=== PATIENT | female | born 1960 | race Caucasian/White ===

== ENCOUNTER → 2017-10-07 | Outpatient (CLI) | payer OTHER ==
--- NOTE | 2017-10-11 09:55 | Diagnostic Imaging Report ---
#[id number] - MGSCRBIL #BILATERAL DIGITAL SCREENING MAMMOGRAM WITH CAD: 10/07/2017 CLINICAL: Routine screening. Comparison is made to exam dated: 09/10/2015 mammogram - [facility]. Current study contains 4 films. There are scattered fibroglandular elements in both breasts. Current study was also evaluated with a Computer Aided Detection (CAD) system. There are benign calcifications in both breasts. No significant masses, calcifications or other findings are seen in either breast. There has been no significant interval change. IMPRESSION: BENIGN There is no mammographic evidence of malignancy. A 1 year screening mammogram is recommended. The patient will be notified by letter of the results. Gustavo Robles Jr., D.O. cw/:10/08/2017 14:49:57 Counter Control Operator: Leslee LUGO)(Pool), [facility] letter sent: Compared to Prior B9 Mammogram BI-RADS: 2 Benign
== END ==
LOC: MAMMO 10:39
PROVIDERS: ATTEND Internal Medicine
DX: Z12.31 Encounter for screening mammogram for malignant neoplasm of breast (principal)
CPT/HCPCS: 77067

== ENCOUNTER 2019-06-02 08:21 | Outpatient (RCR) | payer OTHER | END 2019-06-03 | LOC: OT 08:21 | PROVIDERS: ATTEND Specialist | DX: S46.001A Unspecified injury of muscle(s) and tendon(s) of the rotator cuff of right shoulder, initial encounter (principal); M25.511 Pain in right shoulder; R53.1 Weakness; Z85.118 Personal history of other malignant neoplasm of bronchus and lung ==

== ENCOUNTER 2019-06-27 09:00 | Outpatient (RCR) | payer OTHER | END 2019-07-04 | LOC: OT 09:00 | PROVIDERS: ATTEND Specialist | DX: M75.81 Other shoulder lesions, right shoulder (principal) ==

== ENCOUNTER → 2019-08-07 | Outpatient (CLI) | payer OTHER ==
--- NOTE | 2019-08-07 11:11 | Diagnostic Imaging Report ---
MRI of the right shoulder without contrast. History: Shoulder pain. Decreased range of motion. Rotator cuff tear. Pain not responding to conservative management Comparison: None Technique: Coronal PD FS, sagital PD FS, and axial PD and PD FS. Findings: Rotator cuff: Rotator cuff tendinosis with midsubstance degeneration and mild articular sided fraying/partial tearing involving the anterior fibers of the supraspinatus and infraspinatus tendons at the humeral insertion site. Additionally, there is subscapularis tendinosis. The teres minor tendon is intact. Osseous acromion complex: Type II acromion with mild lateral downsloping. Mild degenerative arthrosis at the acromioclavicular joint with undersurface spurring and narrowing of the supraspinatus tendon outlet. Glenohumeral joint: Degeneration and fraying of the labrum. Articular cartilage fraying and deep fissuring most pronounced in the central glenoid with subchondral cystic change and mild bone marrow edema. The humeral head is well-seated in the glenoid fossa. Biceps tendon: The biceps tendon is intact. Other findings: Negative for muscle denervation or osseous fracture. Impression: Rotator cuff tendinosis with midsubstance degeneration and mild articular sided fraying/partial tearing involving the anterior fibers of the supraspinatus and infraspinatus tendons at the humeral insertion site. Degenerative arthrosis in the glenohumeral and acromioclavicular joints as described above. Signed by: Dr. Robles Martines M.D. on 08/07/2019 11:08 AM
--- NOTE | 2019-08-07 11:52 | Diagnostic Imaging Report ---
MRI SPINE CERVICAL WO HISTORY: Cervical radiculopathy COMPARISON: None. TECHNIQUE: Sagittal T1, sagittal T2, sagittal inversion recovery, axial T2, axial T2 GRE, and axial T1 weighted MR images of the cervical spine were obtained without intravenous contrast. DISCUSSION: Alignment: Normal lordosis. No scoliosis. Vertebrae: No definite evidence for fractures, infection, or neoplasm. Cervicomedullary junction: Mild cerebellar atrophy is partially imaged. Spinal cord: The ventral cord is mildly flattened by posterior disc osteophyte complex on the right at C4-C5 and centrally at C5-C6. The cord is otherwise normal signal and morphology from the foramen magnum through T3-T4. Soft tissues: Partially imaged T1 hypointense, T2 hyperintense mass at the right lung apex measures up to 4.3 cm in transverse dimension and encases the proximal right subclavian artery; this is in close proximity to the proximal right brachial plexus. Approximately 1.6 cm T2 hyperintense left thyroid nodule is present. Moderate to severe multilevel disc degeneration is present C2-C3: Mild left foraminal stenosis due to uncovertebral and facet arthrosis. No significant canal or right foraminal stenosis. C3-C4: Moderate canal stenosis due to posterior disc osteophyte complex, eccentric to the right, and ligamentum flavum thickening. Severe bilateral foraminal stenoses, right greater than left, due to uncovertebral and facet arthrosis. C4-C5: Moderate to severe canal stenosis due to posterior disc osteophyte complex, eccentric to the right, and ligamentum flavum thickening. Severe bilateral foraminal stenoses, right greater than left, due to uncovertebral and facet arthrosis. C5-C6: Moderate to severe canal stenosis due to posterior disc osteophyte complex and ligamentum flavum thickening. Severe bilateral foraminal stenoses due to uncovertebral and facet arthrosis. C6-C7: Mild to moderate canal stenosis due to posterior disc osteophyte complex, eccentric to the left, and ligamentum flavum thickening. Mild right and moderate left foraminal stenoses due to uncovertebral and facet arthrosis. C7-T1: Mild canal stenosis due to posterior disc osteophyte complex and ligamentum flavum thickening. Mild to moderate right and moderate left foraminal stenoses due to uncovertebral and facet arthrosis. IMPRESSION: 1. Partially imaged, at least 4.3 cm right lung apex mass is concerning for lung malignancy. Further evaluation with chest CT is recommended (with contrast if clinically feasible). 2. Moderate to severe multilevel disc degeneration. 3. Multilevel degenerative canal stenoses - moderate to severe at C4-C5 and C5-C6. 4. Multilevel degenerative foraminal stenoses - severe bilaterally from C3-C4 to C5-C6, right greater than left. 5. Approximately 1.6 cm T2 hyperintense left thyroid nodule can be further evaluated with thyroid ultrasound. Signed by: Dr. Garland Rebolledo M.D. on 08/07/2019 11:49 AM
== END ==
LOC: MRI 09:24
PROVIDERS: ATTEND Specialist
DX: M54.12 Radiculopathy, cervical region (principal)
CPT/HCPCS: 72141

== ENCOUNTER 2019-10-12 16:59 | Emergency (ER) | payer SELFPAY ==
[~2019-10-12] VITALS: Ht 167.6 cm; Wt 68.0 kg
--- NOTE | 2019-10-12 17:27 | Emergency Department Note ---
History of Present Illnes History of Present Illness Chief Complaint: General Medicine Complaints History of Present Illness This is a 59 year old female arrived to the ED with complaints of right shoulder pain, patient with a history of significant rotator cuff issue in the past. Patient requesting pain medication the ED. Patient states she is unable to follow up with her pain management doctor. . 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 Arrival Mode: Car Prosthodontist/Educator Required: No Onset (how long ago): month(s) Onset quality: gradual Duration (how long): week(s) Timing of current episode: intermittent Progression: waxing and waning Chronicity: chronic Context: Denies trauma/injury Relieving factors: none Exacerbating factors: none Past Medical/Family History Physician Review I have reviewed the patient's past medical and family history. Any updates have been documented here. Past Medical History Recent Fever: No Clinical Suspicion of Infectio: No New/Unexplained Change in Ment: No Past Medical History: Hypertension Other Medical History: LUNG CA Past Surgical History: Tubal Ligation Social History Physically hurt or threatened: No Review of Systems Review of Systems Constitutional: Reports no symptoms EENTM: Reports no symptoms Cardiovascular: Reports no symptoms Respiratory: Reports no symptoms Gastrointestinal: Reports no symptoms Genitourinary: Reports no symptoms Musculoskeletal: Reports joint pain, Reports muscle pain, Reports muscle stiffness Integumentary: Reports no symptoms Neurological: Reports no symptoms Psychological: Reports no symptoms Endocrine: Reports no symptoms Hematological/Lymphatic: Reports no symptoms Physical Exam Related Data Allergies: Coded Allergies: No Known Allergies (Unverified , 10/12/19) Triage Vital Signs Vital Signs Date Time Temp Pulse Resp B/P (MAP) Pulse Ox O2 Delivery O2 Flow Rate FiO2 10/12/19 17:14 98.1 106 18 159/109 99 Room Air Vital signs reviewed: Yes Physical Exam CONSTITUTIONAL Constitutional: Present well-developed, Present well-nourished HENT HENT: Present normocephalic, Present atraumatic, Present oropharynx clear/moist, Present nose normal HENT L/R: Present left ext ear normal, Present right ext ear normal EYES Eyes: Reports PERRL, Reports conjunctivae normal NECK Neck: Present ROM normal PULMONARY Pulmonary: Present effort normal, Present breath sounds normal CARDIOVASCULAR Cardiovascular: Present regular rhythm, Present normal rate GASTROINTESTINAL Abdominal: Present soft, Present nontender, Present bowel sounds normal GENITOURINARY Genitourinary: Present exam deferred SKIN Skin: Present warm, Present dry MUSCULOSKELETAL Musculoskeletal: Present other (right arm in a sling, compartments are soft); Absent deformity NEUROLOGICAL Neurological: Present alert, Present oriented x 3, Present no gross motor or sensory deficits PSYCHOLOGICAL Psychological: Present mood/affect normal, Present judgement normal Assessment & Plan Medical Decision Making MDM 59-year-old female arrived to the ED with complaints of right shoulder pain, history of rotator cuff injuries in the past. Patient in no obvious deformity noted, compartments are soft, full ROM noted at shoulder joint, pt able to abduct and adduct right upper extremity. Pt offered nonnarcotic forms a pain management, which included Motrin, ketorolac, Solu-Medrol, Tylenol, Lidoderm patch which she refused. Patient states she'll follow up with her pain management doctor. Assessment & Plan Final Impression: (1) Chronic pain (2) Shoulder pain with history of repair of rotator cuff Depart Disposition: HOME, SELF-CARE Last Vital Signs Date Time Temp Pulse Resp B/P (MAP) Pulse Ox O2 Delivery O2 Flow Rate FiO2 10/12/19 17:14 98.1 106 18 159/109 99 Room Air RANDY SHERWOOD DO Oct 12, 2019 17:27
== END 2019-10-12 17:26 | disposition home or self-care (01) ==
LOC: ER 17:14
DX: M25.511 Pain in right shoulder (principal); I10 Essential (primary) hypertension; Z85.118 Personal history of other malignant neoplasm of bronchus and lung
CPT/HCPCS: 99282

== ENCOUNTER 2019-10-22 22:24 | Emergency (ER) | payer OTHER ==
[~2019-10-22] VITALS: Ht 167.6 cm; Wt 68.0 kg
[2019-10-22] MEDS ORDERED: KETOROLAC TROMETHAMINE 60 MG/2 ML VIAL IM ONE ×2 (22:45)
--- NOTE | 2019-10-22 22:49 | Emergency Department Note ---
History of Present Illnes History of Present Illness Chief Complaint: Extremity Trauma/Pain History of Present Illness This is a 59 year old female PRESENTS TO THE ER VIA EMS FROM HOME C/O NECK AND RT SHOULDER PAIN "FOR MONTHS"; PT HAS STAGE 4 LUNG CA; PT HAD HYDROCODONE FILLED ON 10/20/19 AND RAN OUT; PUPILS PINPOINT; LAST HYDROCODONE X2HRS [employer]; RT RT RADIAL PULSE PALPABLE AND STRONG; CAP REFILL < 3 SEC; PT RECEIVED A PRESCRIPTION FOR NORCO ON 10/20/19, 2 DAYS AGO, SHE STATES THE PAIN MEDICATION IS NOT HELPING. 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 Mode: [facility] Onset (how long ago): month(s) (several) Location: right shoulder Quality: pain Radiation: Reports non-radiation Severity: severe Onset quality: unable to specify Duration (how long): month(s) (several months) Timing of current episode: constant Chronicity: new Context: Denies recent illness, Denies recent surgery, Denies trauma/injury Relieving factors: none Exacerbating factors: movement Associated symptoms: Reports denies other symptoms Treatments prior to arrival: none Past Medical/Family History Physician Review I have reviewed the patient's past medical and family history. Any updates have been documented here. Past Medical History Recent Fever: No Clinical Suspicion of Infectio: No New/Unexplained Change in Ment: No Past Medical History: Hypertension, Cancer Other Medical History: STAGE 4 LUNG CA Past Surgical History: Tubal Ligation Social History Smoking Cessation: Former smoker Alcohol Use: None Any Illegal Drug Use: No Family History Family history of heart diseas: No Review of Systems Review of Systems Constitutional: Reports no symptoms EENTM: Reports no symptoms Cardiovascular: Reports no symptoms Respiratory: Reports no symptoms Gastrointestinal: Reports no symptoms Genitourinary: Reports no symptoms Musculoskeletal: Reports as per HPI Integumentary: Reports no symptoms Neurological: Reports no symptoms Psychological: Reports no symptoms Endocrine: Reports no symptoms Hematological/Lymphatic: Reports no symptoms Physical Exam Related Data Allergies: Coded Allergies: No Known Allergies (Unverified , 10/12/19) Triage Vital Signs Vital Signs Date Time Temp Pulse Resp B/P (MAP) Pulse Ox O2 Delivery O2 Flow Rate FiO2 10/22/19 22:37 98.2 101 24 123/96 89 Room Air Vital signs reviewed: Yes Physical Exam CONSTITUTIONAL Constitutional: Present well-developed, Present well-nourished HENT HENT: Present normocephalic, Present atraumatic, Present oropharynx clear/moist, Present nose normal HENT L/R: Present left ext ear normal, Present right ext ear normal EYES Eyes: Reports PERRL, Reports conjunctivae normal, Reports other (PUPILS PINPOINT 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 [employer]) NECK Neck: Present ROM normal PULMONARY Pulmonary: Present effort normal, Present breath sounds normal CARDIOVASCULAR Cardiovascular: Present regular rhythm, Present heart sounds normal, Present capillary refill normal, Present normal rate GASTROINTESTINAL Abdominal: Present soft, Present nontender, Present bowel sounds normal GENITOURINARY Genitourinary: Present exam deferred SKIN Skin: Present warm, Present dry MUSCULOSKELETAL Musculoskeletal: Present ROM normal, Present other (PAIN WITH ROM OF RIGHT SHOUDLER, NO OBVIOS DEFORMITY, N/V IMTACT) NEUROLOGICAL Neurological: Present alert, Present oriented x 3, Present no gross motor or sensory deficits PSYCHOLOGICAL Psychological: Present mood/affect normal, Present judgement normal Assessment & Plan Medical Decision Making MDM PT WITH CHRONIC RIGHT SHOULDER PAIN, H/O ROTATOR CUFF TEAR TORADOL 30 MG IM ORDERED Assessment & Plan Final Impression: (1) Chronic pain (2) Shoulder pain with history of repair of rotator cuff Depart Disposition: HOME, SELF-CARE Last Vital Signs Date Time Temp Pulse Resp B/P (MAP) Pulse Ox O2 Delivery O2 Flow Rate FiO2 10/22/19 22:37 98.2 101 24 123/96 89 Room Air Medications in the ED Ketorolac Tromethamine 60 mg ONCE ONCE IM ; Start 10/22/19 at 22:45; Stop 10/22/19 at 22:41; Status DC Ketorolac Tromethamine 30 mg ONCE ONCE IM ; Start 10/22/19 at 22:45; Stop 10/22/19 at 22:46; Status UNV AMI RAPP MD Oct 22, 2019 22:49
[2019-10-23 00:07] VITALS: BP 145/85
== END 2019-10-23 02:18 | disposition home or self-care (01) ==
LOC: ER 22:40
DX: M25.511 Pain in right shoulder (principal); M54.2 Cervicalgia; G89.29 Other chronic pain; C34.90 Malignant neoplasm of unspecified part of unspecified bronchus or lung; I10 Essential (primary) hypertension; Z87.891 Personal history of nicotine dependence
CPT/HCPCS: 96372; 99283; J1885

== ENCOUNTER 2019-11-09 01:39 | Inpatient (IN) | payer OTHER ==
[~2019-11-09] VITALS: Ht 167.6 cm; Wt 71.7 kg
[2019-11-09] VITALS (7 sets, daily range): BP systolic 106–151; BP diastolic 72–85
[2019-11-09] MEDS ORDERED: SODIUM CHLORIDE 0.9% 1000ML 1,000 ML IV STA (01:44)
--- NOTE | 2019-11-09 01:47 | Emergency Department Note ---
History of Present Illnes History of Present Illness History of Present Illness This is a 59 year old female poor historian reports acute on chronic R shoulder pain with abd pain and n/v. PMH of stage IV CA. Hospice has been previously discussed with patient and deferred 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, Family Member Arrival Mode: Car Onset (how long ago): day(s) (1) Radiation: Reports extremity, Reports abdomen Severity: moderate Onset quality: gradual Duration (how long): day(s) Timing of current episode: constant Progression: worsening Chronicity: recurrent Context: Reports recent illness, Reports non-compliance w/ medications Relieving factors: immobilization, rest Exacerbating factors: eating, movement Associated symptoms: Reports loss of appetite, Reports nausea/vomiting, Reports weakness Treatments prior to arrival: none Previous service: tests performed, one or more referrals, re-evaluation Past Medical/Family History Physician Review I have reviewed the patient's past medical and family history. Any updates have been documented here. Past Medical History Recent Fever: No Clinical Suspicion of Infectio: No New/Unexplained Change in Ment: No Past Medical History: Hypertension, Cancer Other Medical History: STAGE 4 LUNG CA Past Surgical History: Tubal Ligation Social History Smoking Cessation: Current some day smoker Counseling Performed: Yes Alcohol Use: None Any Illegal Drug Use: No Review of Systems Review of Systems Constitutional: Reports weakness EENTM: Reports no symptoms Cardiovascular: Reports no symptoms Respiratory: Reports no symptoms Gastrointestinal: Reports nausea, Reports vomiting Genitourinary: Reports no symptoms Musculoskeletal: Reports joint pain Integumentary: Reports no symptoms Neurological: Reports no symptoms Psychological: Reports no symptoms Endocrine: Reports no symptoms Hematological/Lymphatic: Reports no symptoms Physical Exam Related Data Allergies: Coded Allergies: No Known Allergies (Unverified , 10/12/19) Vital signs reviewed: Yes Physical Exam CONSTITUTIONAL Constitutional: Present cachectic, Present ill appearing HENT HENT: Present normocephalic, Present atraumatic, Present oropharynx clear/moist, Present nose normal HENT L/R: Present left ext ear normal, Present right ext ear normal EYES Eyes: Reports PERRL, Reports conjunctivae normal NECK Neck: Present ROM normal PULMONARY Pulmonary: Present effort normal, Present breath sounds normal CARDIOVASCULAR Cardiovascular: Present regular rhythm, Present heart sounds normal, Present capillary refill normal, Present normal rate GASTROINTESTINAL Abdominal: Present soft, Present tender GENITOURINARY Genitourinary: Present exam deferred SKIN Skin: Present warm, Present dry MUSCULOSKELETAL Musculoskeletal: Present ROM normal NEUROLOGICAL Neurological: Present alert, Present oriented x 3, Present no gross motor or sensory deficits PSYCHOLOGICAL Psychological: Present mood/affect normal, Present judgement normal Results Laboratory Lab results reviewed: Yes Imaging Imaging results reviewed: Yes Impressions [place] [address] Patient Name: DONNIE CEDENO MR #: [id number] : 1960 Age/Sex: 59/F Req #: [id number] Adm Physician: Ordered by: TERESA LOVING DO Report #: [id number] Location: ER Room/Bed: Procedure: [id number] CT/CT ABDOMEN/PELVIS W Exam Date: Exam Time: REPORT STATUS: Signed EXAM: CT Chest WITH contrast 11/09/2019 3:07 AM INDICATION: /o of Lung CA . Nausea and vomiting for 2 days. COMPARISON: None TECHNIQUE: Chest was scanned utilizing a multidetector helical scanner from the lung apex through the level of the adrenal glands with administration of IV contrast. Coronal and sagittal reformations were obtained. Routine protocol was performed. Abdomen and pelvis were scanned utilizing a multidetector helical scanner from the lung base to the pubic symphysis after administration of IV contrast. Coronal and sagittal reformations were obtained. Routine protocol was performed. Scan was performed when during portal venous phase. IV CONTRAST: 100 mL of Omnipaque 300 COMPLICATIONS: None RADIATION DOSE: Total DLP: 549.59cm Estimated effective dose: (DLP x 0.014 x size factor) mSv CTDIvol has been reviewed. It is below the limits set by the Radiation Protocol Committee (RPC). Dose modulation, iterative reconstruction, and/or weight based adjustment of the mA/kV was utilized to reduce the radiation dose to as low as reasonably achievable. FINDINGS: LUNGS AND AIRWAYS: Consolidative masslike opacity at the right apex with surgical internal surgical clips measures approximately 5.0 x 3.7 x 4.3 cm. There is a 6 mm right hilar node. The upper lobe segmental bronchi are truncated as they approach the mass. Otherwise, the airways are patent. Consolidative opacity with air bronchograms just inferior to the mass like opacity. The masslike opacity encases the right subclavian artery. Calcified granuloma in the right upper lobe. PLEURA: No pleural effusion. No pneumothorax. HEART AND MEDIASTINUM: The thyroid gland is normal. No mediastinal, hilar or axillary lymphadenopathy. The heart is normal in size. There is no pericardial effusion. The thoracic aorta and main pulmonary artery are normal caliber. There is diffuse wall thickening of the mid to distal esophagus which is fluid filled with mucosal hyperenhancement. BONES: Old nonunited rib fractures on the right. Degenerative changes of the thoracic spine. HEPATOBILIARY: No focal hepatic lesions. No biliary ductal dilation. GALLBLADDER: No radio-opaque stones or sludge. No wall thickening. SPLEEN: No splenomegaly. PANCREAS: No focal masses or ductal dilatation. ADRENALS: No adrenal nodules KIDNEYS/URETERS: Kidneys enhance symmetrically. No hydronephrosis. No cystic or solid mass lesions. No stones. GI TRACT: Stomach is markedly distended with fluid and ingested contents. There is focal soft tissue thickening of the first and second portions of the duodenum. No dilated small bowel loops. Retained oral contrast within the nondilated colon. PELVIC ORGANS/BLADDER: Unremarkable. LYMPH NODES: No lymphadenopathy. VESSELS: Unremarkable. PERITONEUM / RETROPERITONEUM: No free air or fluid. BONES: Age-indeterminate mild compression deformity of the L2 vertebral body involving less than 10% body height loss. Degenerative changes of the lumbar spine. SOFT TISSUES: Unremarkable. IMPRESSION: 1. Focal soft tissue thickening of the first and second portions of the duodenum and dilated fluid-filled stomach. Findings are suspicious for gastric outlet obstruction. Differential includes focal duodenitis, although given history of lung cancer, an obstructing metastatic lesion is most concerning. Consider GI consultation to consider the utility of endoscopy for further evaluation. 2. Circumferentially thickened mid to distal esophagus with mucosal hyperenhancement concerning for esophagitis. Esophagus is fluid-filled. 3. 5.0 cm masslike opacity at the right apex that truncates the segmental upper lobe bronchi. This could represent residual tumor posttreatment changes. Superimposed infection is not excluded. Correlation with oncologic history and outside exams to determine stability is recommended. Signed by: Aruna Joyce MD on 11/09/2019 4:22 AM Dictated By: ARUNA JOYCE MD 1 Transcribed By: NICOLLE on 11/09/19421 COPY TO: TERESA LOVING DO~ Procedures ABG Interpretation ABG Results: ABG 1 Interpretation: metabolic alkalosis Assessment & Plan Medical Decision Making MDM Diff Dx: Cancer, COVID-19 infection, SBO, constipation, sepsis, PE. CTA chest, CBC, CMP, EKG, COVID-19 test ordered Assessment & Plan Final Impression: (1) Lung cancer (2) Gastric outlet obstruction (3) Chronic pain Depart Disposition: ADMITTED Home Meds Reported Medications Gabapentin (GABAPENTIN) 300 Mg Capsule, 300 MG PO BID, #60 CAP 11/09/19 Hydrocodone Bit/Acetaminophen (NORCO 7.5-325 TABLET) 1 Each Tablet, 1 TAB PO Q6H PRN, TAB 11/09/19 TERESA LOVING DO Nov 09, 2019 01:47
[2019-11-09 01:55] LABS: BASOPHILS % 0.1 % (0.0-1.0); HEMATOCRIT 39.5 % (34.2-44.1); HEMOGLOBIN 13.1 g/dL (12.0-16.0); LYMPHOCYTES # (AUTO) 0.9 (1.0-3.2); LYMPHOCYTES % 6.3 % (18.0-39.1); MEAN CORPUSCULAR HEMOGLOBIN 31.1 pg (28-32); MEAN CORPUSCULAR HGB CONC 33.2 g/dL (31-35); MEAN CORPUSCULAR VOLUME 93.8 fL (81-99); MONOCYTES # (AUTO) 1.1 (0.2-0.8); MONOCYTES % 7.7 % (4.4-11.3); NEUTROPHILS # (AUTO) 11.8 (2.1-6.9); NEUTROPHILS % 85.4 % (38.7-80.0); PLATELET COUNT 414 x10e3/uL (140-360); RED BLOOD COUNT 4.21 x10e6/uL (3.6-5.1); RED CELL DISTRIBUTION WIDTH 12.2 % (11.7-14.4)
[2019-11-09] MEDS ORDERED: ONDANSETRON HCL INJ 2MG/ML 2ML 2 MG/ML VIAL IV STA (01:56)
[2019-11-09 02:14] LABS: ALBUMIN 3.1 g/dL (3.5-5.0); ALBUMIN/GLOBULIN RATIO 0.8 (0.8-2.0); ANION GAP 22.5 mmol/L (8-16); CALCIUM 10.6 mg/dL (8.4-10.2); CREATININE, SERUM 1.52 mg/dL (0.57-1.11); POTASSIUM 3.5 mmol/L (3.5-5.1)
[2019-11-09 02:19] LABS: CREATINE KINASE MB 0.6 ng/mL (0-5.0)
[2019-11-09] MEDS ORDERED: SODIUM CHLORIDE 0.9% 500ML 500 ML IV STA (02:47)
[2019-11-09] MEDS ORDERED: SODIUM CHLORIDE 0.9% 50ML 50 ML ONE (02:56)
[2019-11-09] MEDS ORDERED: IOPAMIDOL 370 MG/ML 200 ML INFUS..BTL INJ ONE (02:56)
--- OUTSIDE RECORDS SUMMARY | 2019-11-09 03:15 | XMS REPORT | Continuity of Care Document ---
Author Author [facility] t Organization [facility] Address 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 Name Role Phone BINTA FALCON, MD LITTLE PCP Oksana WONG Attphys Unavailable SIDNEY KINNEY Attphys Unavailable Payers Payer Name Policy Type Policy Number Effective Date Expiration Date S ource r o [id number] 2019 00:00:00 [facility] Ppo [id number] [facility] Problems Condition Name Condition Details Condition Category Status Onset Date Resolution Date Last Treatment Date Treating Clinician Comments Source Chronic pain Problem Active [facility] Shoulder pain with history of repair of rotator cuff Problem Activ e [facility] Allergies, Adverse Reactions, Alerts Allergy Name Allergy Type Status Severity Reaction(s) Onset Date Inacti ve Date Treating Clinician Comments Source No Known Allergies DA Active U 2017-10-19 00:00:00 [facility] Social History Social Habit Start Date Stop Date Quantity Comments Source Sex Assigned At 1960 00:00:00 1960 00:00:00 Female [facility] Medications This patient has no known medications. Vital Signs Vital Name Observation Time Observation Value Comments Source Weight 2019-10-22 22:37:00 150 [lb_av] [facility] BMI (Body Mass Index) 2019-10-22 22:37:00 24.2 kg/m2 [facility] Weight 2019-10-12 17:14:00 150 [lb_av] [facility] BMI (Body Mass Index) 2019-10-12 17:14:00 24.2 kg/m2 [facility] Procedures Procedure Date / Time Performed Performing Clinician Sourc e MRI joint upr extrem w/o dye 2019-08-07 00:00:00 [facility] Magnetic resonance imaging of cervical spine without c ontrast 2019-08-07 00:00:00 [facility] Plan of Care Planned Activity Planned Date Details Comments Source Instructions Chronic Pain [facility] Encounters Start Date/Time End Date/Time [facility]counter [facility] ID Source 2019-10-22 22:40:00 2019-10-23 02:18:00 Departed Emergency Room [facility] [id number] [facility] 2019-10-12 17:14:00 2019-10-12 17:26:00 Departed Emergency Room [facility] [id number] [facility] 2019-08-07 09:24:00 2019-08-07 09:24:00 Registered Clinic 3 GERI WONG [facility] [id number] [facility] 2019-06-05 08:40:00 2019-07-04 23:59:00 Discharged Recurring [facility] [id number] [facility] 2019-06-02 07:21:00 2019-06-03 22:59:00 Discharged Recurring [facility] [id number] [facility] Results Test Description Test Time Test Comments Results Result Comments Source MRI SPINE CERVICAL WO 2019-08-07 11:30:[address] [place] [address] Patient Name: DONNIE CEDENO MR #: [id number] : 1960 Age/Sex: 59/F Req #: [id number] Adm Physician: Ordered by: GERI WONG MD Report #: [id number] Location: MRI Room/Bed: Procedure: [id number] MRI/MRI SPINE CERVICAL WO Exam Date: Exam Time: REPORT STATUS: Signed MRI SPINE CERVICAL WO HISTORY: Cervical radiculopathy COMPARISON: None. TECHNIQUE: Sagittal T1, sagittal T2, sagittal inversion recovery, axial T2, axial T2 GRE, and axial T1 weighted MR images of the cervical spine were obtained without intravenous contrast. DISCUSSION: Alignment: Normal lordosis. No scoliosis. Vertebrae: No definite evidence for fractures, infection, or neoplasm. Cervicomedullary junction: Mild cerebellar atrophy is partially imaged. Spinal cord: The ventral cord is mildly flattened by posterior disc osteophyte complex on the right at C4-C5 and centrally at C5-C6. The cord is otherwise normal signal and morphology from the foramen magnum through T3-T4. Soft tissues: Partially imaged T1 hypointense, T2 hyperintense mass at the right lung apex measures up to 4.3 cm in transverse dimension and encases the proximal right subclavian artery; this is in close proximity to the proximal right brachial plexus. Approximately 1.6 cm T2 hyperintense left thyroid nodule is present. Moderate to severe multilevel disc degeneration is present C2-C3: Mild left foraminal stenosis due to uncovertebral and facet arthrosis. No significant canal or right foraminal stenosis. C3-C4: Moderate canal stenosis due to posterior disc osteophyte complex, eccentric to the right, and ligamentum flavum thickening. Severe bilateral foraminal stenoses, right greater than left, due to uncovertebral and facet arthrosis. C4-C5: Moderate to severe canal stenosis due to posterior disc osteophyte complex, eccentric to the right, and ligamentum flavum thickening. Severe bilateral foraminal stenoses, right greater than left, due to uncovertebral and facet arthrosis. C5-C6: Moderate to severe canal stenosis due to posterior disc osteophyte complex and ligamentum flavum thickening. Severe bilateral foraminal stenoses due to uncovertebral and facet arthrosis. C6-C7: Mild to moderate canal stenosis due to posterior disc osteophyte complex, eccentric to the left, and ligamentum flavum thickening. Mild right and moderate left foraminal stenoses due to uncovertebral and facet arthrosis. C7-T1: Mild canal stenosis due to posterior disc osteophyte complex and ligamentum flavum thickening. Mild to moderate right and moderate left foraminal stenoses due to uncovertebral and facet arthrosis. IMPRESSION: 1. Partially imaged, at least 4.3 cm right lung apex mass is concerning for lung malignancy. Further evaluation with chest CT is recommended (with contrast if clinically feasible). 2. Moderate to severe multilevel disc degeneration. 3. Multilevel degenerative canal stenoses - moderate to severe at C4-C5 and C5-C6. 4. Multilevel degenerative foraminal stenoses - severe bilaterally from C3-C4 to C5-C6, right greater than left. 5. Approximately 1.6 cm T2 hyperintense left thyroid nodule can be further evaluated with thyroid ultrasound. Signed by: Dr. Garland Rebolledo M.D. on 08/07/2019 11:49 AM Dictated By: GARLAND REBOLLEDO MD 1149 Transcribed By: NICOLLE on 08/07/19 1149 COPY TO: GERI WONG MD MRI SHOULDER RIGHT WO 2019-08-07 11:05:00 [place] [address] Patient Name: DONNIE CEDENO MR #: [id number] : 1960 Age/Sex: 59/F Req #: [id number] Adm Physician: Ordered by: GERI WONG MD Report #: [id number] Location: MRI Room/Bed: Procedure: [id number] MRI/MRI SHOULDER RIGHT WO Exam Date: Exam Time: REPORT STATUS: Signed MRI of the right shoulder without contrast. History: Shoulder pain. Decreased range of motion. Rotator cuff tear. Pain not responding to conservative management Comparison: None Technique: Coronal PD FS, sagital PD FS, and axial PD and PD FS. Finding s: Rotator cuff: Rotator cuff tendinosis with midsubstance degeneration and mild articular sided fraying/partial tearing involving the anterior fibers of the supraspinatus and infraspinatus tendons at the humeral insertion site. Additionally, there is subscapularis tendinosis. The teres minor tendon is intact. Osseous acromion complex: Type II acromion with mild lateral downsloping. Mild degenerative arthrosis at the acromioclavicular joint with undersurface spurring and narrowing of the supraspinatus tendon outlet. Glenohumeral joint: Degeneration and fraying of the labrum. Articular cartilage fraying and deep fissuring most pronounced in the central glenoid with subchondral cystic change and mild bone marrow edema. The humeral head is well-seated in the glenoid fossa. Biceps tendon: The biceps tendon is intact. Other findings: Negative for muscle denervation or osseous fracture. Impression: Rotator cuff tendinosis with midsubstance degeneration and mild articular sided fraying/partial tearing involving the anterior fibers of the supraspinatus and infraspinatus tendons at the humeral insertion site. Degenerative arthrosis in the glenohumeral and acromioclavicular joints as described above. Signed by: Dr. Holly Martines M.D. on 08/07/2019 11:08 AM Dictated By: HOLLY MARTINES MD, MD Transcribed By: NICOLLE on 08/07/197 COPY TO: GERI WONG MD - XR SHOULDER 2 + V RT 2019-05-11 10:03:00 FAX: Sidney Alfaro MD [phone] [place]: St: REG FAX: Main Fonseca MD [phone] Name: DONNIE CEDENO [facility] : 1960 Age/S: 58/F [address] [facility] #: [id number] Loc: [place] [address] Phys: Main Marshall MD Acct: [id number] Dis Date: Status: REG CLI PHONE #: [phone] Exam Date: 05/11/2019916 FAX #: [phone] Reason: EXAMS: CPT CODE: [id number] XR SHOULDER 2 + V RT [address]82 HISTORY: Arm pain TECHNIQUE: Internal/external rotation AP and scapular Y-views of the right shoulder. FINDINGS: No acute fracture. Glenohumeral and acromioclavicular joints are not dislocated. Articulating surfaces appear preserved. Regional soft tissues are unremarkable. Please see the chest x-ray earlier today for findings regarding the thorax. IMPRESSION: Negative radiographic examination of the right shoulder. Location: [facility] at 1003 Reported and signed by: Manuel Marti MD CC: Sidney Kinney MD; Main Marshall M.D. Technologist: NOA BENDER, RT(R); STUDENT TECHNOLOGIST Trnscrd Date/Time/By: 05/11/2019 (1003) : By: [email or web address] Orig Print D/T: S: 05/11/2019 (2758) PAGE 1 Signed Report - XR C-SPINE 4-5 V 2019-05-11 10:00:00 FAX: Sidney Alfaro MD [phone] [place]: O St: REG FAX: Main Fonseca MD [phone] Name: DONNIE CEDENO [facility] : 1960 Age/S: 58/F [address] [facility] Unit #: [id number] Loc: [place] [address] Phys: Main Marshall MD Acct: [id number] Dis Date: Status: REG CLI PHONE #: [phone] Exam Date: 05/11/2019916 FAX #: [phone] Reason: EXAMS: CPT CODE: [id number] XR C-SPINE 4-5 V 80013 HISTORY: Neck pain TECHNIQUE: AP, bilateral oblique, lateral, and open mouth odontoid views of the cervical spine. COMPARISON: None FINDINGS: Craniocervical and cervicothoracic articulations are appropriate. Vertebral body alignment is satisfactory. There is height loss of the C6 vertebral body and there are small moderate-sized osteophytes on vertebral bodies C5-C7. There is narrowing of the intervertebral disc spaces. There is foraminal narrowing bilaterally from the level of C3-C6. No prevertebral soft tissue swelling. Lung apices are clear. IMPRESSION: Degenerative changes of the cervical spine with bilateral foraminal narrowing 3 through C6. Correlate with physical exam for radiculopathy. Location: [facility] at 1000 Reported and signed by: Manuel Marti MD CC: Sidney Kinney MD; Main Marshall M.D. Technologist: RT K[place](R); STUDENT TECHNOLOGIST Trnscrd Date/Time/By: 05/11/2019 (1000) : By: [email or web address] Orig Print D/T: S: 05/11/2019 (0903) PAGE 1 Signed Report - XR CHEST 2 V 2019-05-11 09:50:00 FAX: Sidney Alfaro MD [phone] [place]: O St: REG FAX: Main Fonseca MD [phone] Name: DONNIE CEDENO [facility] : 1960 Age/S: 58/F [address] [facility] Unit #: [id number] Loc: [place] [address] Phys: Main Marshall MD Acct: [id number] Dis Date: Status: REG CLI PHONE #: [phone] Exam Date: 05/11/2019 0917 FAX #: [phone] Reason: C34.10,M25.519,C77.1 EXAMS: CPT CODE: [id number] XR CHEST 2 V 92881 REASON FOR EXAM: C34.10,M25.519,C77.1 Exam Order Date: 05/11/2019 8:47 AM Ordering M.D.: Main Marshall MD PROCEDURE: - XR CHEST 2 V COMPARISON: Chest x-ray February 10, 2018 FINDINGS: Opacity in the right lung apex with surgical clips appears slightly more opaque compared to the prior exam however this may partially be due to differences in technique. There is also a calcified granuloma in the right upper lobe that is unchanged. The mid and lower right lung and the left lung are clear with no pleural effusion. Cardiac media subtle silhouette is normal in size. There are degenerative changes in the spine. Upper abdomen is radiographically unremarkable. IMPRESSION: Right lung apex opacity, likely corresponding to the mass seen on the prior CT, appears more pronounced from the prior radiograph. This can be better assessed with cross-sectional imaging. The remainder of the lungs are clear. Location: [facility] at 0950 Reported and signed by: Manuel Marti MD CC: Sidney Kinney MD; Main Marshall M.D. Technologist: NOA BENDER RT(R); STUDENT TECHNOLOGIST Trnscrd Date/Time/By: 05/11/2019 (2160) : By: [email or web address] Orig Print D/T: S: 05/11/2019 (7547) PAGE 1 Signed Report - PET/CT TUMOR SK MIDTH 2019-03-27 16:54:00 FAX: Sidney Alfaro MD [phone] [place]: St: REG FAX: Main Fonseca MD [phone] Name: DONNIE CEDENO [facility] : 1960 Age/S: 58/F [address] [facility] Unit #: [id number] Loc: [place] [address] Phys: Main Marshall MD Acct: [id number] Dis Date: Status: REG CLI PHONE #: [phone] Exam Date: 03/27/2019 09 FAX #: [phone] Reason: CA LUNG EXAMS: CPT CODE: [id number] PET/CT TUMOR SK MIDTH 41661 HISTORY: Restaging lung cancer. COMPARISON: PET/CT scan from November 19, 2017. Location: [facility]. PET/CT SCAN: 11.5 mCi of FDG administered. Images obtained from the skull base to the upper thighs 1 hour postinjection. Blood glucose level = 110 mg/dL. HEAD AND NECK: Intense uptake within the brain parenchyma limited evaluation. Physiologic pharyngeal uptake. CHEST: Port-A-Cath on the left. Ill-defined right apical mass appears larger from previous examination now measuring 5 cm with SUV uptake ranging up to 7. This measured 4 cm on the previous examination SUV ranging up to 8.6. Loss of lung volume and shift the mediastinum towards the right side. Additional 1.2 cm left upper lobe posterior pleural-based mass consistent with metastases measuring 1.2 cm with SUV uptake ranging up to 5. No other metastases to the lungs. No pathologic hilar, mediastinal or axillary adenopathy or uptake. No breast uptake or chest wall uptake. ABDOMEN: No hepatic or adrenal metastases. No abnormal uptake within the spleen or the pancreas or the kidneys. Excretion into the bowel. No pathologic mesenteric, retroperitoneal or retrocrural adenopathy or uptake. PELVIS: Excretion into the bowel. Excretion into the urinary bladder. No uptake within the uterus. No pelvic pathologic adenopathy. MUSCULOSKELETAL: No abnormal uptake. IMPRESSION: Right upper lobe/apical mass now measuring 5 cm with SUV uptake ranging up to 7. This measured 4 cm in 2018 with SUV uptake of 8.6. Metastatic focus is pleural-based in the right upper lobe posterolaterally and inferiorly measuring 1.2 cm with SUV uptake ranging up to 5. No pathologic mesenteric, retroperitoneal or retrocru ral adenopathy. No distant metastases. PAGE 1 Signed Report (CONTINUED) FAX: Sidney Alfaro MD [phone] [place]: St: REG FAX: Main Fonseca MD [phone] Name: DONNIE CEDENO KYAW [facility] : 1960 Age/S: 58/F [address] [facility] Unit #: [id number] Loc: [place] [address] Phys: Main Marshall MD Acct: [id number] Dis Date: Status: REG CLI PHONE #: [phone] Exam Date: 03/27/2019 0905 FAX #: [phone] Reason: CA LUNG EXAMS: CPT CODE: [id number] PET/CT TUMOR SK BS MIDTH 33129 <Continued> at 9906 Reported and signed by: Dariel Ann M.D. CC: Sidney Kinney MD; Main Marshall M.D. Technologist: Gina Vila RT(N) Trnscrd Date/Time/By: 03/27/2019 (7398) : By: [email or web address] Orig Print D/T: S: 03/27/2019 (8014) PAGE 2 Signed Report LUNG 2018-02-08 15:25:00 RUN DATE: 02/08/18 [facility] PAGE 1 RUN TIME: 1525 Specimen Inquiry RUN USER: INTERFACE PATIENT: DONNIE CEDENO KYAW LOC: JOANA U #: [id number] AGE/SX: 57/F ROOM: [facility] RE02/03/18REG DR: Rasheed Mosqueda MD : [birth year] BED: A DIS: STATUS: ADM IN TLOC: SPEC #: [id number] RECD: 02/03/18 STATUS: TRINI NOVAK #: [id number] JOHN: 02/03/18- SUBM DR: Rasheed Mosqueda MD ENTERED: 02/03/18 SP TYPE: LUNG OTHR DR: Sidney Kinney MD TUMOR REGISTRYORDERED: GROSS COPIES TO: Sidney Kinney MD [address] [place] [address] Rasheed Mosqueda MD [address] [address] TUMOR REGISTRY MARKERS: FROZEN SECTIONS, MALIGNANCY PROCEDURES: GROSS (02/08/18-1259) TISSUES: 1. LUNG, NOS - RIGHT UPPER MARGIN 2. LUNG, NOS - RIGHT UPPER 3. RIB, NOS - RIGHT 6th 4. MEDIASTINAL LYMPH NODE - BX CLINICAL HISTORY COLLECTION DATE: 02/03/18 RIGHT LUNG CANCER FINAL DIAGNOSIS Right lung, upper lobe margin site, specimen #1 for frozen section: ADIPOSE TISSUE WITH SOME FAT NECROSIS AND PATCHY MILD CHRONIC INFLAMMATION NEGATIVE FOR MALIGNANCY Right lung, upper lobe margin site, specimen #2 for frozen section: SQUAMOUS CELL CARCINOMA WITHIN FIBROCONNECTIVE TISSUE Right 6th rib, segmental resection: RIB SEGMENT, NO PATHOLOGIC ALTERATION CONTINUED ON NEXT PAGE RUN DATE: 02/08/18 [facility] PAGE 2 RUN TIME: 1525 Specimen Inquiry RUN USER: INTERFACE SPEC #: [id number] PATIENT: DONNIE CEDENO #[id number] (Continued) FINAL DIAGNOSIS (Continued) Mediastinal tissue, biopsy: SQUAMOUS CELL CARCINOMA, WITH A DESMOPLASTIC REACTION AND AREAS OF NECROSIS DMW/sm D (3) 56763, (2) 62182, 56270, 37048 FROZEN SECTION DIAGNOSIS The staining of the fresh frozen section is adequate. MACROSCOPIC The first specimen is received fresh for frozen section evaluation and consists of a fatty fragment of tissue which contains a staple and measures 1.6 X 0.6 X 0.25 cm. It is submitted in its entirety for frozen section evaluation. Right upper lobe margin, specimen #1, frozen section diagnosis: ADIPOSE TISSUE WITH FAT NECROSIS, NO MALIGNANCY SEEN (DMW) The staining of the fresh frozen section is adequate. The second specimen is received fresh for frozen section evaluation and consists of red tissue fragment measuring 1.5 X 0.7 X 0.2 cm. It is submitted in its entirety for frozen section evaluation as FS2A. Right upper lobe margin, specimen #2, frozen section diagnosis: SQUAMOUS CELL CARCINOMA (DMW) The staining of the fresh frozen section is adequate. The third specimen is received in formalin, labeled with the patient's name and identified as "6th rib". It consists of a segment of rib which measures 5.0 X 1.3 X 1 cm. The specimen is placed in decalcification solution prior to sampling. Slide Attendant sections of bone are submitted in cassette (3). The fourth specimen is received in formalin, labeled with the patient's name and identified as "mediastinal tissue bx". It consists of multiple judge-meyer firm fragments of tissue measuring 2.3 X 2.3 X 0.5 cm in aggregate. The specimen is submitted for microscopic evaluation in cassette (4). GROSS PERFORMED AT [facility] [address] [facility], CONTINUED ON NEXT PAGE RUN DATE: 02/08/18 [facility] PAGE 3 RUN TIME: 1525 Specimen Inquiry RUN USER: INTERFACE SPEC #: [id number] PATIENT: DONNIE CEDENO KYAW #[id number] (Continued) MACROSCOPIC (Continued) [place] [address] [phone] MICROSCOPIC MICROSCOPIC PERFORMED AT [facility] All of the stains, including any controls performed, stain appropriately. [facility] [address] [place] [address], [place] [address] [phone] PERFORM[address] SITE Diagnosis performed at: [facility] [address] [place] [address] Signed SIGNATURE ON FILE Adela Spencer 02/08/18 1525 END OF REPORT MAMMOGRAPHY DIGITAL SCR BILAT 2017-10-07 11:20:00 [place] [address] Patient Name: DONNIE CEDENO MR #: [id number] : 1960 Age/Sex: 57/F Req #: [id number] [facility] Physician: Ordered by: SIDNEY KINNEY MD Report #: [id number] Location: MAMMO Room/Bed: Procedure: [id number] MG/MAMMOGRAPHY DIGITAL SCR BILAT Exam Date: 10/07/17 Exam Time: 1050 REPORT STATUS: Signed #[id number] - [id number] #BILATERAL DIGITAL SCREENING MAMMOGRAM WITH CAD: 10/07/2017 CLINICAL: Routine screening. Comparison is made to exam dated: 09/10/2015 mammogram - [facility]. Current study contains 4 films. There are scattered fibroglandular elements in both breasts. Current study was also evaluated with a Computer Aided Detection (CAD) system. There are benign calcifications in both breasts. No significant masses, calcifications or other findings are seen in either breast. There has been no significant interval change. IMPRESSION: BENIGN There is no mammographic evidence of malignancy. A 1 year screening mammogram is recommended. The patient will be notified by letter of the results. Gustavo Zepeda Jr., D.O. cw/:10/08/2017 14:49:57 Chips Screen Tender: Leslee WESLEY(Camille)(M), [facility] letter sent: Compared to Prior B9 Mammogram BI-RADS: 2 Benign Dictated By: GUSTAVO ZEPEDA DO 1447 Transcribed By: ZOE on 10/08/17 1443 COPY TO: SIDNEY KINNEY MD
[2019-11-09 03:34] LABS: ABG HCO3 49 mmol/L (22-26); ABG PCO2 54 mmHg (35-45); ABG PH 7.57 (7.35-7.45); ABG PO2 71 mmHg (80-105); ABG TCO2 50
--- NOTE | 2019-11-09 04:25 | Diagnostic Imaging Report ---
EXAM: CT Chest WITH contrast 11/09/2019 3:07 AM INDICATION: /o of Lung CA . Nausea and vomiting for 2 days. COMPARISON: None TECHNIQUE: Chest was scanned utilizing a multidetector helical scanner from the lung apex through the level of the adrenal glands with administration of IV contrast. Coronal and sagittal reformations were obtained. Routine protocol was performed. Abdomen and pelvis were scanned utilizing a multidetector helical scanner from the lung base to the pubic symphysis after administration of IV contrast. Coronal and sagittal reformations were obtained. Routine protocol was performed. Scan was performed when during portal venous phase. IV CONTRAST: 100 mL of Omnipaque 300 COMPLICATIONS: None RADIATION DOSE: Total DLP: 549.59cm Estimated effective dose: (DLP x 0.014 x size factor) mSv CTDIvol has been reviewed. It is below the limits set by the Radiation Protocol Committee (RPC). Dose modulation, iterative reconstruction, and/or weight based adjustment of the mA/kV was utilized to reduce the radiation dose to as low as reasonably achievable. FINDINGS: LUNGS AND AIRWAYS: Consolidative masslike opacity at the right apex with surgical internal surgical clips measures approximately 5.0 x 3.7 x 4.3 cm. There is a 6 mm right hilar node. The upper lobe segmental bronchi are truncated as they approach the mass. Otherwise, the airways are patent. Consolidative opacity with air bronchograms just inferior to the mass like opacity. The masslike opacity encases the right subclavian artery. Calcified granuloma in the right upper lobe. PLEURA: No pleural effusion. No pneumothorax. HEART AND MEDIASTINUM: The thyroid gland is normal. No mediastinal, hilar or axillary lymphadenopathy. The heart is normal in size. There is no pericardial effusion. The thoracic aorta and main pulmonary artery are normal caliber. There is diffuse wall thickening of the mid to distal esophagus which is fluid filled with mucosal hyperenhancement. BONES: Old nonunited rib fractures on the right. Degenerative changes of the thoracic spine. HEPATOBILIARY: No focal hepatic lesions. No biliary ductal dilation. GALLBLADDER: No radio-opaque stones or sludge. No wall thickening. SPLEEN: No splenomegaly. PANCREAS: No focal masses or ductal dilatation. ADRENALS: No adrenal nodules KIDNEYS/URETERS: Kidneys enhance symmetrically. No hydronephrosis. No cystic or solid mass lesions. No stones. GI TRACT: Stomach is markedly distended with fluid and ingested contents. There is focal soft tissue thickening of the first and second portions of the duodenum. No dilated small bowel loops. Retained oral contrast within the nondilated colon. PELVIC ORGANS/BLADDER: Unremarkable. LYMPH NODES: No lymphadenopathy. VESSELS: Unremarkable. PERITONEUM / RETROPERITONEUM: No free air or fluid. BONES: Age-indeterminate mild compression deformity of the L2 vertebral body involving less than 10% body height loss. Degenerative changes of the lumbar spine. SOFT TISSUES: Unremarkable. IMPRESSION: 1. Focal soft tissue thickening of the first and second portions of the duodenum and dilated fluid-filled stomach. Findings are suspicious for gastric outlet obstruction. Differential includes focal duodenitis, although given history of lung cancer, an obstructing metastatic lesion is most concerning. Consider GI consultation to consider the utility of endoscopy for further evaluation. 2. Circumferentially thickened mid to distal esophagus with mucosal hyperenhancement concerning for esophagitis. Esophagus is fluid-filled. 3. 5.0 cm masslike opacity at the right apex that truncates the segmental upper lobe bronchi. This could represent residual tumor posttreatment changes. Superimposed infection is not excluded. Correlation with oncologic history and outside exams to determine stability is recommended. Signed by: Zander Cabrales MD on 11/09/2019 4:22 AM
--- OUTSIDE RECORDS SUMMARY | 2019-11-09 04:54 | XMS REPORT | Continuity of Care Document ---
Author Author [facility] t Organization [facility] Address [address] [place] [address] Phone Unavailable Care Team Providers Care Dry Chain Operator Name Role Phone BINTA FALCON, MD LITTLE PCP TERESA LOVING Attphys Unavailable Oksana WONG Attphys Unavailable SIDNEY KINNEY Attphys Unavailable Payers Payer Name Policy Type Policy Number Effective Date Expiration Date S ource r o [id number] 2019 00:00:00 [facility] Ppo [id number] [facility] Problems Condition Name Condition Details Condition Category Status Onset Date Resolution Date Last Treatment Date Treating Clinician Comments Source Chronic pain Problem Active [facility] Shoulder pain with history of repair of rotator cuff Problem Activ e [facility] Allergies, Adverse Reactions, Alerts Allergy Name Allergy Type Status Severity Reaction(s) Onset Date Inacti ve Date Treating Clinician Comments Source No Known Allergies DA Active U 2017-10-19 00:00:00 [facility] Social History Social Habit Start Date Stop Date Quantity Comments Source Sex Assigned At 1960 00:00:00 1960 00:00:00 Female [facility] Medications This patient has no known medications. Vital Signs Vital Name Observation Time Observation Value Comments Source Weight 2019-10-22 22:37:00 150 [lb_av] [facility] BMI (Body Mass Index) 2019-10-22 22:37:00 24.2 kg/m2 [facility] Weight 2019-10-12 17:14:00 150 [lb_av] [facility] BMI (Body Mass Index) 2019-10-12 17:14:00 24.2 kg/m2 [facility] Procedures Procedure Date / Time Performed Performing Clinician Sourc e MRI joint upr extrem w/o dye 2019-08-07 00:00:00 [facility] Magnetic resonance imaging of cervical spine without c ontrast 2019-08-07 00:00:00 [facility] Plan of Care Planned Activity Planned Date Details Comments Source Instructions Chronic Pain [facility] Encounters Start Date/Time End Date/Time Encounter Type Admission Type [facility] Care Department Encounter ID Source 2019-10-22 22:40:00 2019-10-23 02:18:00 Departed Emergency Room [facility] [id number] [facility] 2019-10-12 17:14:00 2019-10-12 17:26:00 Departed Emergency Room [facility] [id number] [facility] 2019-08-07 09:24:00 2019-08-07 09:24:00 Registered Clinic 3 GERI WONG [facility] [id number] [facility] 2019-06-05 08:40:00 2019-07-04 23:59:00 Discharged Recurring [facility] [id number] [facility] 2019-06-02 07:21:00 2019-06-03 22:59:00 Discharged Recurring [facility] [id number] [facility] Results Test Description Test Time Test Comments Results Result Comments Source CT CHEST W 2019-11-09 03:47:00 [facility] [address] [address] Patient Name: DONNIE CEDENO MR #: [id number] : 1960 Age/Sex: 59/F Req #: [id number] Adm Physician: Ordered by: TERESA LOVING DO Report #: [id number] Location: ER Room/Bed: Procedure: [id number] CT/CT CHEST W Exam Date: Exam Time: REPORT STATUS: Signed EXAM: CT Chest WITH contrast 11/09/2019 3:07 AM INDICATION: /o of Lung CA . Nausea and vomiting for 2 days. COMPARISON: None TECHNIQUE: Chest was scanned utilizing a multidetector helical scanner from the lung apex through the level of the adrenal glands with administration of IV contrast. Coronal and sagittal reformations were obtained. Routine protocol was performed. Abdomen and pelvis were scanned utilizing a multidetector helical scanner from the lung base to the pubic symphysis after administration of IV contrast. Coronal and sagittal reformations were obtained. Routine protocol was performed. Scan was performed when during portal venous phase. IV CONTRAST: 100 mL of Omnipaque 300 COMPLICATIONS: None RADIATION DOSE: Total DLP: 549.59cm Estimated effective dose: (DLP x 0.014 x size factor) mSv CTDIvol has been reviewed. It is below the limits set by the Radiation Protocol Committee (RPC). Dose modulation, iterative reconstruction, and/or weight based adjustment of the mA/kV was utilized to reduce the radiation dose to as low as reasonably achievable. FINDINGS: LUNGS AND AIRWAYS: Consolidative masslike opacity at the right apex with surgical internal surgical clips measures approximately 5.0 x 3.7 x 4.3 cm. There is a 6 mm right hilar node. The upper lobe segmental bronchi are truncated as they approach the mass. Otherwise, the airways are patent. Consolidative opacity with air bronchograms just inferior to the mass like opacity. The masslike opacity encases the right subclavian artery. Calcified granuloma in the right upper lobe. PLEURA: No pleural effusion. No pneumothorax. HEART AND MEDIASTINUM: The thyroid gland is normal. No mediastinal, hilar or axillary lymphadenopathy. The heart is normal in size. There is no pericardial effusion. The thoracic aorta and main pulmonary artery are normal caliber. There is diffuse wall thickening of the mid to distal esophagus which is fluid filled with mucosal hyperenhancement. BONES: Old nonunited rib fractures on the right. Degenerative changes of the thoracic spine. HEPATOBILIARY: No focal hepatic lesions. No biliary ductal dilation. GALLBLADDER: No radio-opaque stones or sludge. No wall thickening. SPLEEN: No splenomegaly. PANCREAS: No focal masses or ductal dilatation. ADRENALS: No adrenal nodules KIDNEYS/URETERS: Kidneys enhance symmetrically. No hydronephrosis. No cystic or solid mass lesions. No stones. GI TRACT: Stomach is markedly distended with fluid and ingested contents. There is focal soft tissue thickening of the first and second portions of the duodenum. No dilated small bowel loops. Retained oral contrast within the nondilated colon. PELVIC ORGANS/BLADDER: Unremarkable. LYMPH NODES: No lymphadenopathy. VESSELS: Unremarkable. PERITONEUM / RETROPERITONEUM: No free air or fluid. BONES: Age-indeterminate mild compression deformity of the L2 vertebral body involving less than 10% body height loss. Degenerative changes of the lumbar spine. SOFT TISSUES: Unremarkable. IMPRESSION: 1. Focal soft tissue thickening of the first and second portions of the duodenum and dilated fluid-filled stomach. Findings are suspicious for gastric outlet obstruction. Differential includes focal duodenitis, although given history of lung cancer, an obstructing metastatic lesion is most concerning. Consider GI consultation to consider the utility of endoscopy for further evaluation. 2. Circumferentially thickened mid to distal esophagus with mucosal hyperenhancement concerning for esophagitis. Esophagus is fluid-filled. 3. 5.0 cm masslike opacity at the right apex that truncates the segmental upper lobe bronchi. This could represent residual tumor posttreatment changes. Superimposed infection is not excluded. Correlation with oncologic history and outside exams to determine stability is recommended. Signed by: Aruna Cabrales MD on 11/09/2019 4:22 AM Dictated By: ARUNA CABRALES MD 1 Transcribed By: NICOLLE on 11/09/19421 COPY TO: TERESA LOVING DO CT ABDOMEN/PELVIS W 2019-11-09 03:47:[address] [address] Patient Name: DONNIE CEDENO MR #: [id number] : 1960 Age/Sex: 59/F Req #: [id number] Adm Physician: Ordered by: TERESA LOVING DO Report #: [id number] Location: ER Room/Bed: Procedure: [id number] CT/CT ABDOMEN/PELVIS W Exam Date: Exam Time: REPORT STATUS: Signed EXAM: CT Chest WITH contrast 11/09/2019 3:07 AM INDICATION: /o of Lung CA . Nausea and vomiting for 2 days. COMPARISON: None TECHNIQUE: Chest was scanned utilizing a multidetector helical scanner from the lung apex through the level of the adrenal glands with administration of IV contrast. Coronal and sagittal reformations were obtained. Routine protocol was performed. Abdomen and pelvis were scanned utilizing a multidetector helical scanner from the lung base to the pubic symphysis after administration of IV contrast. Coronal and sagittal reformations were obtained. Routine protocol was performed. Scan was performed when during portal venous phase. IV CONTRAST: 100 mL of Omnipaque 300 COMPLICATIONS: None RADIATION DOSE: Total DLP: 549.59cm Estimated effective dose: (DLP x 0.014 x size factor) mSv CTDIvol has been reviewed. It is below the limits set by the Radiation Protocol Committee (RPC). Dose modulation, iterative reconstruction, and/or weight based adjustment of the mA/kV was utilized to reduce the radiation dose to as low as reasonably achievable. FINDINGS: LUNGS AND AIRWAYS: Consolidative masslike opacity at the right apex with surgical internal surgical clips measures approximately 5.0 x 3.7 x 4.3 cm. There is a 6 mm right hilar node. The upper lobe segmental bronchi are truncated as they approach the mass. Otherwise, the airways are patent. Consolidative opacity with air bronchograms just inferior to the mass like opacity. The masslike opacity encases the right subclavian artery. Calcified granuloma in the right upper lobe. PLEURA: No pleural effusion. No pneumothorax. HEART AND MEDIASTINUM: The thyroid gland is normal. No mediastinal, hilar or axillary lymphadenopathy. The heart is normal in size. There is no pericardial effusion. The thoracic aorta and main pulmonary artery are normal caliber. There is diffuse wall thickening of the mid to distal esophagus which is fluid filled with mucosal hyperenhancement. BONES: Old nonunited rib fractures on the right. Degenerative changes of the thoracic spine. HEPATOBILIARY: No focal hepatic lesions. No biliary ductal dilation. GALLBLADDER: No radio-opaque stones or sludge. No wall thickening. SPLEEN: No splenomegaly. PANCREAS: No focal masses or ductal dilatation. ADRENALS: No adrenal nodules KIDNEYS/URETERS: Kidneys enhance symmetrically. No hydronephrosis. No cystic or solid mass lesions. No stones. GI TRACT: Stomach is markedly distended with fluid and ingested contents. There is focal soft tissue thickening of the first and second portions of the duodenum. No dilated small bowel loops. Retained oral contrast within the nondilated colon. PELVIC ORGANS/BLADDER: Unremarkable. LYMPH NODES: No lymphadenopathy. VESSELS: Unremarkable. PERITONEUM / RETROPERITONEUM: No free air or fluid. BONES: Age-indeterminate mild compression deformity of the L2 vertebral body involving less than 10% body height loss. Degenerative changes of the lumbar spine. SOFT TISSUES: Unremarkable. IMPRESSION: 1. Focal soft tissue thickening of the first and second portions of the duodenum and dilated fluid-filled stomach. Findings are suspicious for gastric outlet obstruction. Differential includes focal duodenitis, although given history of lung cancer, an obstructing metastatic lesion is most concerning. Consider GI consultation to consider the utility of endoscopy for further evaluation. 2. Circumferentially thickened mid to distal esophagus with mucosal hyperenhancement concerning for esophagitis. Esophagus is fluid-filled. 3. 5.0 cm masslike opacity at the right apex that truncates the segmental upper lobe bronchi. This could represent residual tumor posttreatment changes. Superimposed infection is not excluded. Correlation with oncologic history and outside exams to determine stability is recommended. Signed by: Aruna Cabrales MD on 11/09/2019 4:22 AM Dictated By: ARUNA CABRALES MD 1 Transcribed By: NICOLLE on 11/09/19421 COPY TO: INDERTERESA MRI SPINE CERVICAL WO 2019-08-07 11:30:[address] [address] Patient Name: DONNIE CEDENO MR #: [id number] : 1960 Age/Sex: 59/F Req #: [id number] Adm Physician: Ordered by: GERI WONG MD Report #: [id number] Location: MRI Room/Bed: Procedure: [id number] MRI/MRI SPINE CERVICAL WO Exam Date: Exam [...] 11:49 AM Dictated By: GARLAND REBOLLEDO MD 1141 Transcribed By: NICOLLE on 08/07/19 1141 COPY TO: GERI WONG MD MRI SHOULDER RIGHT WO 2019-08-07 11:05:00 [facility] [address] [address] Patient Name: DONNIE CEDENO MR #: [id number] : 1960 Age/Sex: 59/F [facility] #: [id number] Req #: [id number] Adm Physician: Ordered by: GERI WONG MD Report #: [id number] Location: MRI Room/Bed: Procedure: [id number] MRI/MRI SHOULDER RIGHT WO Exam Date: Exam [...] AM Dictated By: HOLLY MARTINES MD, MD 07 Transcribed By: NICOLLE on 08/07/191107 COPY TO: GERI WONG MD - XR SHOULDER 2 + V RT 2019-05-11 10:03:00 FAX: Sidney Alfaro MD [phone] [place]: O St: REG FAX: Main Fonseca MD [phone] Name: DONNIE CEDENO [facility] : 1960 Age/S: 58/F [address] [facility] Unit #: [id number] Loc: [place] [address] Phys: Main Marshall MD Acct: [id number] Dis Date: Status: REG CLI PHONE #: [phone] Exam Date: 05/11/2019916 FAX #: [phone] Reason: EXAMS: CPT CODE: [id number] XR SHOULDER 2 + [place] [address] HISTORY: Arm pain TECHNIQUE: Internal/external rotation AP and scapular Y-views of the right shoulder. FINDINGS: No acute fracture. Glenohumeral and acromioclavicular joints are not dislocated. Articulating surfaces appear preserved. Regional soft tissues are unremarkable. Please see the chest x-ray earlier today for findings regarding the thorax. IMPRESSION: Negative radiographic examination of the right shoulder. Location: [facility] at 1003 Reported and signed by: Manuel Marti MD CC: Sidney Kinney MD; Main Marshall M.D. Technologist: RT KENYON(R); STUDENT TECHNOLOGIST Trnscrd Date/Time/By: 05/11/2019 (1004) : By: [email or web address] Orig Print D/T: S: 05/11/2019 (1506) PAGE 1 Signed Report - XR C-SPINE 4-5 V 2019-05-11 10:00:00 FAX: Sidney Alfaro MD [phone] [place]: O St: REG FAX: Main Fonseca MD [phone] Name: DONNIE CEDENO [facility] : 1960 Age/S: 58/F [address] [facility] Unit #: [id number] Loc: [place] [address] Phys: Main Marshall MD Acct: [id number] Dis Date: Status: REG CLI PHONE #: [phone] Exam Date: 05/11/2019916 FAX #: [phone] Reason: EXAMS: CPT CODE: [id number] XR C-SPINE 4-5 V 50662 HISTORY: Neck pain TECHNIQUE: AP, bilateral oblique, [...] Correlate with physical exam for radiculopathy. Location: [facility] at 1000 Reported and signed by: Manuel Marti MD CC: Sidney Kinney MD; Main Marshall M.D. Technologist: NOA BENDER, RT(R); STUDENT TECHNOLOGIST Trnscrd Date/Time/By: 05/11/2019 (1000) : By: [email or web address] Orig Print D/T: S: 05/11/2019 (1003) PAGE 1 Signed Report - XR CHEST 2 V 2019-05-11 09:50:00 FAX: Sidney Alfaro MD [phone] [place]: St: REG FAX: Main Fonseca MD [phone] Name: DONNIE CEDENO [facility] : 1960 Age/S: 58/F [address] [facility] Unit #: [id number] Loc: [place] [address] Phys: Main Marshall MD Acct: [id number] Dis Date: Status: REG CLI PHONE #: [phone] Exam Date: 05/11/2019 0917 FAX #: [phone] Reason: C34.10,M25.519,C77.1 EXAMS: CPT CODE: [id number] XR CHEST 2 V 59844 REASON FOR EXAM: C34.10,M25.519,C77.1 Exam Order Date: 05/11/2019 8:47 AM Ordering M.Sophia: Main Marshall MD PROCEDURE: - XR CHEST [...] remainder of the lungs are clear. Location: [facility] at 0950 Reported and signed by: Manuel Marti MD CC: Sidney Kinney MD; Main Marshall M.D. Technologist: RT KENYON(R); STUDENT TECHNOLOGIST Trnscrd Date/Time/By: 05/11/2019 (6902) : By: [email or web address] Orig Print D/T: S: 05/11/2019 (9974) PAGE 1 Signed Report - PET/CT TUMOR SK MIDTH 2019-03-27 16:54:00 FAX: Sidney Alfaro MD [phone] [place]: St: REG FAX: Main Fonseca MD [phone] Name: DONNIE CEDENO [facility] : 1960 Age/S: 58/F [address] [facility] Unit #: [id number] Loc: [place] [address] Phys: Main Marshall MD Acct: [id number] Dis Date: Status: REG CLI PHONE #: [phone] Exam Date: 03/27/2019 0905 FAX #: [phone] Reason: CA LUNG EXAMS: CPT CODE: [id number] PET/CT TUMOR SK MIDTH 84919 HISTORY: Restaging lung cancer. COMPARISON: PET/CT scan from November 19, 2017. Location: [facility]. PET/CT SCAN: 11.5 mCi of FDG administered. [...] Signed Report (CONTINUED) FAX: Sidney Alfaro MD [phone] [place]: St: REG FAX: Main Fonseca MD [phone] Name: DONNIE CEDENO [facility] : 1960 Age/S: 58/F [address] Unit #: [id number] Loc: [place] [address] Phys: Main Marshall MD Acct: [id number] Dis Date: Status: REG CLI PHONE #: [phone] Exam Date: 03/27/2019904 FAX #: [phone] Reason: CA LUNG EXAMS: CPT CODE: [id number] PET/CT TUMOR SK BS MIDTH 78947 <Continued> at 4027 Reported and signed by: Dariel Ann M.D. CC: Sidney Kinney MD; Main Marshall M.D. Technologist: Gina Vila RT(N) Trnscrd Date/Time/By: 03/27/2019 (8920) : By: [email or web address] Orig Print D/T: S: 03/27/2019 (6477) PAGE 2 Signed Report LUNG 2018-02-08 15:25:00 RUN DATE: 02/08/18 [facility] PAGE 1 RUN TIME: 1525 Specimen Inquiry RUN USER: INTERFACE PATIENT: DONNIE CEDENO LOC: JOANA U #: [id number] AGE/SX: 57/F ROOM: Alexis6 RE02/03/18REG DR: Rasheed Mosqueda MD : [birth year] BED: A DIS: STATUS: ADM IN TLOC: SPEC #: [id number] RECD: 02/03/18 STATUS: TRINI NOVAK #: [id number] JOHN: 02/03/18- DR: Rasheed Mosqueda MD ENTERED: 02/03/18 SP TYPE: LUNG OTHR DR: Sidney Kinney MD TUMOR REGISTRYORDERED: GROSS COPIES TO: Sidney Kinney MD [address] [place] [address] Rasheed Mosqueda MD [address] [address] TUMOR REGISTRY MARKERS: FROZEN SECTIONS, [...] CONTINUED ON NEXT PAGE RUN DATE: 02/08/18 [facility] PAGE 2 RUN TIME: 1525 Specimen Inquiry RUN USER: INTERFACE SPEC #: [id number] PATIENT: DONNIE CEDENO [facility] #[id number] (Continued) FINAL DIAGNOSIS (Continued) Mediastinal tissue, biopsy: SQUAMOUS CELL CARCINOMA, WITH A DESMOPLASTIC REACTION AND AREAS OF NECROSIS DMW/sm D 3) 25280, (2) 72889, 82767, 00844 FROZEN SECTION DIAGNOSIS The staining of the [...] placed in decalcification solution prior to sampling. Brim Pouncing Machine Operator sections of bone are submitted in cassette (3). The fourth specimen is received in formalin, labeled with the patient's name and identified as "mediastinal tissue bx". It consists of multiple judge-meyer firm fragments of tissue measuring 2.3 X 2.3 X 0.5 cm in aggregate. The specimen is submitted for microscopic evaluation in cassette (4). GROSS PERFORMED AT [facility] [address] [facility], CONTINUED ON NEXT PAGE RUN DATE: 02/08/18 [facility] PAGE 3 RUN TIME: 1525 Specimen Inquiry RUN USER: INTERFACE SPEC #: [id number] PATIENT: DONNIE CEDENO [facility] #[id number] (Continued) MACROSCOPIC (Continued) [place] [address] [phone] MICROSCOPIC MICROSCOPIC PERFORMED AT [facility] All of the stains, including any controls performed, stain appropriately. [facility] [address] [facility], [place] [address] [phone] PERFORMING SITE Diagnosis performed at: [facility], [address] [place] [address] Signed SIGNATURE ON FILE Adela Spencer 02/08/18 1525 END OF REPORT MAMMOGRAPHY DIGITAL SCR BILAT 2017-10-07 11:20:00 [address] [address] Patient Name: DONNIE CEDENO MR #: [id number] : 1960 Age/Sex: 57/F Req #: [id number] [facility] Physician: Ordered by: SIDNEY KINNEY MD Report #: [id number] Location: MAMMO Room/Bed: Procedure: [id number] MG/MAMMOGRAPHY DIGITAL SCR BILAT Exam Date: 10/07/17 Exam Time: 1050 REPORT STATUS: Signed #[id number] - MGSCRBIL #BILATERAL DIGITAL SCREENING MAMMOGRAM WITH CAD: 10/07/2017 CLINICAL: Routine screening. Comparison is made to exam dated: 09/10/2015 mammogram - [facility]. Current study contains 4 films. There are [...] results. Gustavo Zepeda Jr., D.O. cw/:10/08/2017 14:49:57 Senior Packaging Engineer: Leslee WESLEY(R)(M), [facility] letter sent: Compared to Prior B9 Mammogram BI-RADS: 2 Benign Dictated By: GUSTAVO ZEPEDA DO 1445 Transcribed By: ZOE on 10/08/17 1440 COPY TO: SIDNEY KINNEY MD
[2019-11-09] MEDS: MORPHINE SULFATE 2 MG/ML SYR 1ML IV PRN ×4 (05:02→19:09)
[2019-11-09] MEDS: ONDANSETRON HCL INJ 2MG/ML 2ML 2 MG/ML VIAL IV PRN ×4 (05:03→19:09)
--- NOTE | 2019-11-09 08:05 | NUR ---
CASE MANAGEMENT HERE TO SEE PATIENT
--- NOTE | 2019-11-09 08:31 | NUR ---
SPOKE WITH PT SHE DOES NOT WANT HOSPICE, SHE SEES DR CABELLO FOR HER CANCER AND WOULD LIKE TO SPEAK WITH HIM BECAUSE HER PAIN IS NOT CONTROLLED. SHE STATES SHE WANT TO CONTINUE TREATMENT WITH ONCOLOGY BUT WANTS PAIN TO BE CONTROLLED. SHE STATES SHE RAN OUT AND WASNT AWARE SHE WAS SO LOW SO CALLED TO COME HERE. STATES TOOK ALL OF MEDS, NOT A FINANCIAL ISSUE.
--- NOTE | 2019-11-09 10:00 | NUR ---
PT ARRIVED FROM ER. PT IS AAOX3. PT HAS DIFFICULTY TO SPEAK NOTED. EDUCATED PT ABOUT FALL PRECAUTIONS. PT VERBALIZED UNDERSTANDING. BED IS LOW AND LOCKED. SIDE RAILS X2. BED ALARM IS ON. CALL LIGHT WITH IN EASY REACH. ALL SAFETY MEASURES IN PLACE. PT DENIES NEEDS AT THIS TIME.
--- NOTE | 2019-11-09 10:05 | NUR ---
PAGED DR. DOS SANTOS AND DR. Pool YUEN REGARDING NEW CONSULT.
--- NOTE | 2019-11-09 10:15 | NUR ---
DR. DOS SANTOS AT BEDSIDE. PT DIFFICULTY TO SPEAK LOW VOICE INFORMED DR AT BEDSIDE.
[2019-11-09 10:30] LABS: CREATINE KINASE MB 0.7 ng/mL (0-5.0)
--- NOTE | 2019-11-09 10:40 | NUR ---
PT HOME MEDS RECONFIRMED WITH PT AND HER DAUGHTER SHONDA CEDENO. ONLY GABAPENTIN AND NORCO PT TAKING PER THE PT AND DAUGHTER.
[2019-11-09] MEDS ORDERED: NORCO 7.5-3251 EACH PO (10:42)
[2019-11-09] MEDS ORDERED: GABAPENTIN300 MG PO (10:48)
--- NOTE | 2019-11-09 11:03 | NUR ---
PAGED DR. STARK REGARDING NEW CONSULT. NEW ORDER RECEIVED.
--- NOTE | 2019-11-09 13:05 | NUR ---
DR. STARK AT BEDSIDE.
[2019-11-09] MEDS: HYDROCODONE/APAP 10MG-325MG TAB PO PRN ×3 (13:10→21:21)
--- NOTE | 2019-11-09 19:15 | NUR ---
BEDSIDE SHIFT REPORT GIVEN TO THE COMMERCIAL LOAN REVIEWER RN. PT DENIED FURTHER NEEDS
[2019-11-09] MEDS ORDERED: ACETAMINOPHEN 325 MG TAB PO PRN (20:30)
[2019-11-09] MEDS ORDERED: HYDRALAZINE HCL 20 MG/ML VIAL IV PRN (20:30)
[2019-11-09 21:22] LABS: CREATINE KINASE MB 1.6 ng/mL (0-5.0)
[2019-11-09] MEDS ORDERED: METOPROLOL TARTRATE INJ 1 MG/ML VIAL IV PRN (22:45)
[2019-11-09] MEDS ORDERED: TEMAZEPAM 15 MG CAP PO PRN (23:15)
[2019-11-09] MEDS ORDERED: KCL 20MEQ/.9 SOD CHL 1,000 ML IV ONE (23:30)
[2019-11-09] MEDS ORDERED: SODIUM CHLORIDE 0.9% 1000ML 1,000 ML ONE (23:33)
[2019-11-10] VITALS (10 sets, daily range): BP systolic 113–139; BP diastolic 8–81
--- NOTE | 2019-11-10 00:26 | History and Physical ---
DATE OF SERVICE: 11/09/2019 CONSULTING PHYSICIANS: 1. Dr. Edyta Angeles with Pain Management. 2. Dr. Lynette Hill with Oncology. 3. Dr. Josue Montelongo with Gastroenterology. PRIMARY CARE PHYSICIAN: Dr. Aram Kinney. CHIEF COMPLAINT: Right shoulder pain, abdominal pain, nausea, and vomiting. HISTORY OF PRESENT ILLNESS: Per documentation, this is a 59-year-old female, who presented to the emergency department reporting [id number] right shoulder pain with abdominal pain and nausea and vomiting. She has a known past medical history of stage IV lung cancer. The patient was a poor historian there. Hospice had been previously discussed with the patient and deferred. In the course of evaluation by the emergency department physician, it was determined that her CT showed gastric outlet obstruction. The patient was having uncontrolled pain and wanted to see her outpatient oncologist, Dr. Marshall. I called and spoke to Dr. Marshall, and he does not usually round here, however, stated that he would if needed. He has no other patients here currently. I discussed with him regarding pain management. He said he would be fine to consult Dr. Angeles with Pain Management. Case was discussed with Dr. Carpenter. The patient is currently seen in room 298. PAST MEDICAL HISTORY: Per documentation obtained from the patient's outpatient oncologist, Dr. Marshall. 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 MRI of the brain was negative. Thoracotomy of the tumor invading the mediastinum was unresectable. Chemotherapy/radiation on 05/13/2018, restaging of the CT of the chest, improved. New mass 1.2 cm right upper lobe noted on or about 03/27/2019. The patient was felt not to be an appropriate candidate for stereotactic radiation, elected to use afatinib 40 mg daily and dose was reduced to 30 mg because of severe rash after one month, and subsequently decreased to 20 mg. Tylenol No. 3 was switched to hydrocodone [address] Marshall included malignant neoplasm of upper lobe, unspecified bronchus or lung. 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 PAST SURGICAL HISTORY: Tubal ligation and attempted tumor resection via thoracotomy. FAMILY HISTORY: Mother had cancer, unknown type. SOCIAL HISTORY: The patient admits to smoking 1.5 pack per day for 43 years for a total of 64.5 pack years. 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 Per documentation, the patient is alcoholic, drinking 6-pack a day previously. She states socially she did partake of some crack use, but was never addicted. ALLERGIES: NO KNOWN ALLERGIES. REVIEW OF SYSTEMS: A 14-point review of systems was completed. The patient denied any recent weight loss or chills. Denies problems with eyes, ears, nose, throat. She does become short of breath at times and has chest pressure at times. She states prior to arrival, she had nausea, vomiting, and output was "black" at home and she states she vomited all night last night. Currently, no nausea or vomiting. Musculoskeletal, right shoulder pain, currently 7/10 on a 0-10 pain scale. OBJECTIVE: VITAL SIGNS: Temperature 97.8. Afebrile. Pulse 85, blood pressure 131/85, respirations 26, oxygen saturation 93%. Height 5 feet 6 inches, weight 153 pounds, BMI of 24.69. GENERAL: Cachectic, supine in bed. LUNGS: Scattered crackles, oxygen at 5 L/minute via nasal cannula. HEENT: EOMI. NECK: Supple. CARDIOVASCULAR: Regular rate and rhythm. No murmur. ABDOMEN: Bowel sounds positive. Soft, nontender. No guarding. EXTREMITIES: No pitting edema. No clubbing, cyanosis, or signs of DVT. NEUROLOGICAL: GCS 15. Nonfocal. DIAGNOSTIC STUDIES/LABORATORY DATA: WBCs 13.86, hemoglobin 13.1, hematocrit 39.5, platelets 414. ABG was done, pH 7.57, pCO2 54, pO2 71, HCO3 49, oxygen saturation 96%, base excess 27, FiO2 32%. Sodium 137, potassium 3.5, chloride 75, serum carbon dioxide 43, anion gap 22.5, BUN 32, creatinine 1.52, estimated GFR 35, glucose 167, calcium 10.6, total bilirubin 0.3, AST 17, ALT 17, alkaline phosphatase 83. Creatine kinase 21, CK-MB 0.6, troponin I 0.018. Subsequent cardiac enzymes were within normal limits except for creatine kinase at 16, but the troponin I's were 0.036 and 0.008. B-type natriuretic peptide 108.8. Total protein 7.2, albumin 3.1. Coronavirus PCR collected today was negative. CT of the abdomen and pelvis showed focal soft tissue thickening of the first and second portions of the duodenum and dilated free fluid. Stomach findings are suspicious for gastric outlet obstruction. Results also concerning for esophagitis. Esophagus is fluid-filled. A 5.0 cm masslike opacity at the right apex that truncates the segmental upper lobe bronchi. CT of the chest also included, no CT results. Per telemetry, sinus rhythm with a heart rate of 85. A 12-lead EKG showed normal sinus rhythm with a heart rate of 87. ASSESSMENT/PLAN: 1. Gastric outlet syndrome. Gastroenterology has been consulted. Continue cardiac diet for now and await recommendations. 2. Acute kidney injury. BUN 32, creatinine 1.52, estimated GFR 35. Sodium is 137, potassium 3.5. Start the patient on normal saline with 20 mEq potassium chloride at 100 mL/hour. Monitor chemistry results. 3. Hypoxia. Continue supplemental oxygen and incentive spirometry. Monitor for improvement. 4. Squamous cell cancer of the right upper lobe of lung with [id number] pain. Pain Management consulted and Oncology following. Appreciate recommendations. The patient is currently on morphine sulfate 4 mg IV q.4 hours and [place] 10 mg every 4 hours p.r.n. 5. Mild acute hypokalemia. Potassium level 3.5. We will add potassium chloride and IV fluids for now. Monitor lab results. 6. Metabolic alkalosis with recent nausea/vomiting. Monitor for improvement with IV hydration and nutritional support. 7. Prophylaxis, SCDs, IV Pepcid. Billing code 94257. Time spent 60 minutes. Dictated by Andre Merrill NP Chi Carpenter MD [facility]/MODL /[id number]
[2019-11-10] MEDS: MORPHINE SULFATE 2 MG/ML SYR 1ML IV PRN ×4 (01:30→16:22)
[2019-11-10 06:15] LABS: BASOPHILS % 0.1 % (0.0-1.0); EOSINOPHILS # (AUTO) 0.1 (0.0-0.4); EOSINOPHILS % 0.7 % (0.0-6.0); HEMATOCRIT 26.4 % (34.2-44.1); HEMOGLOBIN 8.6 g/dL (12.0-16.0); LYMPHOCYTES # (AUTO) 1.2 (1.0-3.2); LYMPHOCYTES % 12.8 % (18.0-39.1); MEAN CORPUSCULAR HEMOGLOBIN 31.3 pg (28-32); MEAN CORPUSCULAR HGB CONC 32.6 g/dL (31-35); NEUTROPHILS # (AUTO) 6.8 (2.1-6.9); PLATELET COUNT 295 x10e3/uL (140-360); RED BLOOD COUNT 2.75 x10e6/uL (3.6-5.1); RED CELL DISTRIBUTION WIDTH 12.6 % (11.7-14.4)
[2019-11-10 06:37] LABS: ALBUMIN 2.4 g/dL (3.5-5.0); ALBUMIN/GLOBULIN RATIO 0.8 (0.8-2.0); ANION GAP 10.9 mmol/L (8-16); CALCIUM 8.4 mg/dL (8.4-10.2); CREATININE, SERUM 1.03 mg/dL (0.57-1.11)
[2019-11-10 06:55] LABS: POTASSIUM 2.9 mmol/L (3.5-5.1)
[2019-11-10 06:56] LABS: CHOL/HDL RATIO 4.5 (3.0-3.6); MAGNESIUM 1.4 MG/DL (1.3-2.1); PHOSPHORUS 1.6 MG/DL (2.3-4.7)
--- NOTE | 2019-11-10 07:00 | NUR ---
BEDSIDE SHIFT REPORT RECEIVED FROM GLOBAL CHIEF CREATIVE OFFICER RN. EDUCATED PT ABOUT FALL PRECAUTIONS. PT VERBALIZED UNDERSTANDING. BED IS LOW AND LOCKED. SIDE RAILS X2. BED ALARM IS ON. CALL LIGHT WITH IN EASY REACH. ALL SAFETY MEASURES IN PLACE. PT DENIES NEEDS AT THIS TIME.
--- NOTE | 2019-11-10 07:05 | NUR ---
PING YAÑEZ NP AND INFORMED PT K LEVEL 2.9
[2019-11-10 07:17] LABS: THYROID STIMULATING HORMONE 3.47 uIU/mL (0.350-4.940)
[2019-11-10] MEDS ORDERED: POTASSIUM CHLORIDE 10MEQ/100ML 200 ML IV ONE ×2 (07:45→12:00)
[2019-11-10] MEDS ORDERED: MAGNESIUM SULFATE 2GM/50ML 50 ML IV ONE ×3 (08:15→12:00)
--- NOTE | 2019-11-10 09:00 | NUR ---
GIVE 10 MEQ KCL IN 100 ML THEN START MAGNESIUM PER CRISTIANO CHINCHILLA.
--- NOTE | 2019-11-10 09:00 | NUR ---
PAGED OR AND INFORMED PT K LEVEL 2.9. INFORMED PT IS ON IV KCL.
[2019-11-10] MEDS: FAMOTIDINE 20 MG/2 ML VIAL IV SCH ×2 (09:17→16:21)
--- NOTE | 2019-11-10 12:45 | NUR ---
PT OFF UNIT FOR PROCEDURE IN SAFE CONDITION.
[2019-11-10] MEDS ORDERED: BENZOCAINE/TETRACAINE/BUTAMBEN AERO SPRAY 56 GM CAN ONE (13:42)
[2019-11-10] MEDS ORDERED: PANTOPRAZOLE 40 MG 10ML VIAL IV ONE (14:30)
--- NOTE | 2019-11-10 14:50 | NUR ---
PT BACK TO UNIT AFTER PROCEDURE. PT DENIES NEEDS AT THIS TIME.
--- NOTE | 2019-11-10 14:59 | Operative Report ---
DATE OF PROCEDURE: 11/10/2019 SURGEON: Josue Montelongo MD PROCEDURE: EGD with esophageal brushings. INDICATIONS FOR EGD: Abdominal pain, nausea, vomiting, abnormal CT scan of abdomen. MEDICATIONS: The patient was done under MAC, please see anesthesiologist's note. PROCEDURE IN DETAIL: With the patient in the left lateral decubitus position, a flexible fiberoptic Olympus gastroscope was introduced into the esophagus under direct visualization without any difficulty. The mucosa overlying the distal half of the esophagus was diffusely ulcerated and brushings were sent to stain for Erika to rule out a superimposed Erika esophagitis. The scope was then advanced with ease into the stomach traversing a small hiatal hernia. Large amount of coffee-ground material was noted in the stomach and the scope was then advanced to the pylorus, which was ulcerated and there was a giant ulcer in the duodenal bulb, partially causing a partial gastric outlet obstruction. The scope was then advanced to the second portion of the duodenum and several small superficial ulcerations were noted in the second portion of the duodenum. The scope was then withdrawn back into the stomach and retroflexed, and the fundus and the cardia were suboptimally visualized due to the overlying coffee-ground material. The scope was then straightened out, it was subsequently withdrawn, and the patient tolerated the procedure well. IMPRESSION: 1. Diffusely ulcerated, distal half of esophagus, brushed. 2. Small to moderate-sized hiatal hernia. 3. Large amount of coffee-ground material in stomach. 4. Giant ulcer, duodenal bulb, causing partial gastric outlet obstruction. 5. Multiple superficial ulcers, second portion of duodenum. PLAN: Follow up brushings. Start PPI drip. Initiate Reglan 10 mg IV every 6 hours and Carafate 1 g p.o. before meals t.i.d. and at bedtime. Start full liquid diet. Josue Montelongo MD [facility] [place] /[id number] cc: MD Chi Valentino MD Ghyasuddin Syed, MD
[2019-11-10] MEDS ORDERED: POTASSIUM PHOSPHATE IV ONE ×2 (15:30→18:00)
[2019-11-10] MEDS ORDERED: SODIUM CHLORIDE IV ONE ×2 (15:30→18:00)
[2019-11-10] MEDS: PANTOPRAZOL 40MG/SOD CHL 0.9% 50 ML IV SCH ×2 (15:45→19:34)
[2019-11-10] MEDS: SUCRALFATE 1 GM TAB PO SCH ×2 (16:21→19:34)
[2019-11-10] MEDS: METOCLOPRAMIDE HCL 10 MG/2ML VIAL IV SCH (17:07)
--- NOTE | 2019-11-10 18:00 | NUR ---
PT PULLED OUT LH 20 G IV. TIP INTACT. DRESSING APPLIED. NEW IV 20 G LH STARTED . PT DENIED FURTHER NEEDS.
--- NOTE | 2019-11-10 19:00 | NUR ---
BEDSIDE SHIFT REPORT GIVEN TO THE JIRA DEVELOPER RN. PT DENIED FURTHER NEEDS.
[2019-11-10] MEDS ORDERED: ETOMIDATE 2 MG/ML 10 ML INJ IV ONE (19:59)
[2019-11-10] MEDS ORDERED: METOCLOPRAMIDE HCL 10 MG/2ML VIAL ONE (19:59)
[2019-11-10] MEDS ORDERED: PROPOFOL IV EMULSION 10 MG/ML 20 ML VIAL ONE (19:59)
[2019-11-10] MEDS ORDERED: LIDOCAINE HCL 2% LOCAL INJ 5 ML SDV VIAL INJ ONE (19:59)
[2019-11-10] MEDS ORDERED: MIDAZOLAM HCL 2 MG/2 ML VIAL ONE (21:37)
--- NOTE | 2019-11-10 22:51 | NUR ---
PATIENT BED ALARM WENT OFF, PT SEEN SITTING ON HER KNEES IN BED FACING THE BACK OF THE BED, SEEMS TO BE CONFUSED ABOUT WHAT SHE WAS TRYING TO DO, REORIENTED TO SITUATION, EDUCATED ABOUT FALL RISK, TOILETING PERFORMED, REPOSITIONED BACK IN BED FOR COMFORT, AND WATER GIVEN REQUESTED, PATIENT CONTINUES TO COMPLAIN OF IV SITE HURTING AND "GETTING TIGHT", NEW IV PLACED IN RIGHT WRIST, PT STATES "BETTER", IV POTASSIUM RESTARTED AT LOWER RATE PER PT REQUEST INFUSING AT 10ML/HR, CALL LIGHT WITHIN REACH
[2019-11-11] VITALS (9 sets, daily range): BP systolic 122–161; BP diastolic 66–97
--- NOTE | 2019-11-11 | NUR ---
PATIENT PULLED OUT ALL HER WORKING IV'S, RESTARTED IV'S IN RIGHT AC #20G, ANOTHER IN RIGHT HAND #20G, AND LEFT FOREARM #20G, MED RESTARTED
[2019-11-11] MEDS: PANTOPRAZOL 40MG/SOD CHL 0.9% 50 ML IV SCH ×5 (03:00→21:00)
--- NOTE | 2019-11-11 03:00 | NUR ---
PATIENT PULLED OUT BOTH IV'S IN HER RIGHT AC AND RIGHT WRIST, BLOOD SEEN ALL OVER BEDDING AND PATIENT, PATIENT SEEN SMILING WHEN ATTEMPTING TO REEDUCATED HER ON MEDICATION THERAPY, ADVISED HER YET AGAIN THAT WE NEED THE IV TO GIVE MEDICATION, SHE STATED "I DONT WANT IT" "I WANT TO GO HOME" "LEAVE ME ALONE", PATIENT SEEMS AT TIME TO BE CONFUSED, AOX1 CURRENTLY, TELEPHONE WEBBING WEAVER TYRONE BUNDY UPDATED ON INFORMATION OF PATIENT AND HOW SHE HAS PULLED OUT ALL IV TWICE MY SHIFT AND REFUSING TO HAVE IT REINSERTED, SHE STATED" I WILL REFER MATTER TO CRISTIANO"
[2019-11-11] MEDS: METOCLOPRAMIDE HCL 10 MG/2ML VIAL IV SCH ×5 (05:53→23:49)
[2019-11-11 06:00] LABS: BASOPHILS % 0.1 % (0.0-1.0); EOSINOPHILS % 0.4 % (0.0-6.0); HEMATOCRIT 25.9 % (34.2-44.1); HEMOGLOBIN 8.4 g/dL (12.0-16.0); LYMPHOCYTES # (AUTO) 0.9 (1.0-3.2); LYMPHOCYTES % 12.2 % (18.0-39.1); MEAN CORPUSCULAR HEMOGLOBIN 30.8 pg (28-32); MEAN CORPUSCULAR HGB CONC 32.4 g/dL (31-35); MEAN CORPUSCULAR VOLUME 94.9 fL (81-99); MONOCYTES # (AUTO) 0.7 (0.2-0.8); MONOCYTES % 9.3 % (4.4-11.3); NEUTROPHILS # (AUTO) 5.7 (2.1-6.9); NEUTROPHILS % 77.5 % (38.7-80.0); PLATELET COUNT 323 x10e3/uL (140-360); RED BLOOD COUNT 2.73 x10e6/uL (3.6-5.1); RED CELL DISTRIBUTION WIDTH 12.4 % (11.7-14.4)
--- NOTE | 2019-11-11 06:07 | NUR ---
2nd IV started in right lower wrist, patient cooperative, still insisting on calling daughter to leave go AMA, attempted to call daughter SHONDA CEDENO [phone] NO ANSWER MAILBOX FULL, LEFT SMS TO RETURN CALL TO OUR NUMBER ON UNIT
[2019-11-11 06:28] LABS: ANION GAP 11.9 mmol/L (8-16); BLOOD UREA NITROGEN 13 mg/dL (7-26); BUN/CREATININE RATIO 16 (6-25); CALCIUM 8.3 mg/dL (8.4-10.2); CARBON DIOXIDE 35 mmol/L (22-29); CHLORIDE 89 mmol/L (98-107); CREATININE, SERUM 0.79 mg/dL (0.57-1.11); EST GLOMERULAR FILTRATION RATE > 60 ML/MIN (60-); GLUCOSE 88 mg/dL (74-118); MAGNESIUM 1.8 MG/DL (1.3-2.1); PHOSPHORUS 1.8 MG/DL (2.3-4.7); SODIUM 133 mmol/L (136-145)
[2019-11-11 06:42] LABS: POTASSIUM 2.9 mmol/L (3.5-5.1)
--- NOTE | 2019-11-11 07:00 | NUR ---
RECEIVED PATIENT RESTING IN BED NO S/S OF DISTRESS. BED LOW, WHEELS LOCKED, SIDE RAILS X2. CALL LIGHT IN REACH WILL CONTINUE TO MONITOR PATIENT.
[2019-11-11] MEDS ORDERED: SODIUM CHLORIDE 0.9% 1000ML 1,000 ML ONE (07:17)
[2019-11-11] MEDS: SUCRALFATE 1 GM TAB PO SCH ×4 (09:00→21:00)
[2019-11-11] MEDS: FAMOTIDINE 20 MG/2 ML VIAL IV SCH ×2 (09:00→17:26)
--- NOTE | 2019-11-11 09:53 | NUR ---
PATIENT PULLED OUT RIGHT AND LEFT ARM IV. PRESSURE DRESSING APPLIED. WILL ATTEMPT NEW IV ACCESS.
[2019-11-11] MEDS: POTASSIUM CHLORIDE 20 MEQ TAB CR PO SCH ×2 (10:45→17:26)
--- NOTE | 2019-11-11 10:47 | NUR ---
NEW 20 GAUGE IV TO LEFT FOREARM AND RIGHT HAND.
[2019-11-11] MEDS: ACETAZOLAMIDE 250 MG TAB PO SCH (13:18)
--- NOTE | 2019-11-11 18:05 | Progress Note ---
DATE: 11/10/2019 DATE OF SERVICE: November 10, 2019. SUBJECTIVE: The patient is lying supine in bed, short of breath with chest pressure at times. Denies any current nausea or vomiting. Currently no pain. She underwent EGD earlier by Dr. Montelongo. OBJECTIVE: VITAL SIGNS: Temperature 98.6, pulse 87, blood pressure 139/79, respirations 18, and oxygen saturation 95% on 5 L/minute via nasal cannula. GENERAL: Supine, no apparent distress. LUNGS: Scattered crackles. Oxygen at 5 L/minute via nasal cannula. HEENT: EOMI. NECK: Supple. CARDIOVASCULAR: Regular rate and rhythm without murmur. ABDOMEN: Bowel sounds positive. Soft, nontender. No guarding. EXTREMITIES: No pitting edema. No clubbing, cyanosis, or signs of DVT. NEUROLOGICAL: GCS 15. Nonfocal. LABORATORY DATA: WBC 9.04, hemoglobin 8.6, hematocrit 26.4, platelets 295. Sodium 130, potassium 2.9, chloride 84, CO2 38, BUN 32, creatinine 1.03, estimated GFR 53. Hemoglobin A1c 5.8%, calcium 8.4, total bilirubin 0.3, AST 14, ALT 12, and alkaline phosphatase 52. No new imaging studies for Dr. Montelongo. The EGD with esophageal brushings showed diffusely ulcerated, distal half of esophagus, brushed, small to moderate sized hiatal hernia. Large amount of coffee-ground material in the stomach. Giant ulcer, duodenal bulb, causing partial gastric outlet obstruction. Multiple superficial ulcers, 2nd portion of the duodenum. ASSESSMENT AND PLAN: 1. Gastric outlet syndrome, diffusely ulcerated esophagus. Gastroenterology following. Continue dietary recommendations per Gastroenterology. PPI drip. Reglan 10 mg IV every 6 hours and Carafate 1 g p.o. before meals t.i.d. and at bedtime, full liquid diet. 2. Acute kidney injury. BUN 32, creatinine 1.03, estimated GFR 54. Renal function improving. Continue IV fluids normal saline with 20 mEq potassium chloride at 100 mL an hour. 3. Hypoxia. Continue supplemental oxygen and incentive spirometry. Monitor for improvement. 4. Squamous cell cancer of the right upper lobe of the lung with acute on chronic pain, Pain Management and Oncology following. 5. Acute hypokalemia. Potassium level 2.9. We will replete after magnesium is repleted. 6. Acute hypomagnesemia. Magnesium level low at 1.4. Replete with 2 g of magnesium sulfate IV. 7. Acute hypophosphatemia. Will replete with 10 millimoles of sodium phosphate. 8. Metabolic alkalosis with recent nausea and vomiting. Continue IV hydration and electrolyte repletion. Monitor for improvement. 9. Prophylaxis, SCDs, IV Pepcid, sucralfate, IV Protonix, SCDs. Billing code [id number]. Time spent 40 minutes. Dictated by Andre Merrill, AMOR MD MAURICIO StaffordP/MODL /[id number]
--- NOTE | 2019-11-11 18:50 | Progress Note ---
DATE: CONSULTING PHYSICIANS: 1. Edyta Angeles M.D., Pain Management. 2. Lynette Hill M.D., with Oncology. 3. Josue Montelongo M.D. with Gastroenterology. SUBJECTIVE: The patient is lying supine in bed. Head of bed elevated. Reports her back was sore last night. Per the nurse, she was very confused last night, pulling out multiple IVs. She does have desaturation of her SpO2 with activity/being out of bed. OBJECTIVE: VITAL SIGNS: Per telemetry, sinus rhythm, heart rate 87. Temperature 98.5, recently low-grade temperature of 99.2, pulse 91, blood pressure 144/66, respirations 18, and oxygen saturation 99%. GENERAL: In no acute distress. LUNGS: Clear to auscultation. RESPIRATORY: Pattern even, nonlabored and diminished in the bases, oxygen at 5 L/minute via nasal cannula earlier today, but has been weaned to 3 L/minute via nasal cannula. HEENT: EOMI. NECK: Supple. CARDIOVASCULAR: Regular rate and rhythm. No murmur. ABDOMEN: Bowel sounds positive. Soft, nontender. EXTREMITIES: Without pitting edema. No clubbing or cyanosis. NEUROLOGIC: GCS 15. Nonfocal. She is currently calm, not picking at any lines. LABORATORY DATA: WBCs 7.31, hemoglobin 8.4, hematocrit 25.9, and platelets 323. Sodium 133, potassium 2.9, chloride 89, CO2 of 35, anion gap 11.9, BUN 13, creatinine 0.79, estimated GFR greater than 60, glucose 88, calcium 8.3, phosphorus 1.8, and magnesium 1.8. No new imaging. ASSESSMENT/PLAN: 1. Gastric outlet syndrome, diffusely ulcerated distal half of the esophagus. Gastroenterology following. Continue Protonix drip, Reglan, Carafate, full liquid diet. 2. Metabolic encephalopathy, possibly due to alkalosis with electrolyte imbalances. One-to-one sitter p.r.n. Continue use of oxygen, increased caused by hypoxia. Electrolyte repletion p.r.n. 3. Acute kidney injury, improving. Creatinine 0.79. Continue IV fluids and monitor. 4. Hypoxia. Continue supplemental oxygen and wean to room air as tolerated. Incentive spirometry. 5. Squamous cell cancer of the right upper lobe of the lung with ihqsu-qn-dbbtral pain. Oncology and Pain Management following. Orders entered for Case Management for assisted facility evaluation for placement. 6. Acute hyponatremia. Continue IV fluids. 7. Acute hypokalemia. Potassium level 2.9. We will replete with 40 mEq potassium chloride p.o. once. 8. Hypophosphatemia. Phosphorus 1.8 (1.6), sodium phosphate 10 millimoles IV once a day. 9. Metabolic alkalosis with recent nausea and vomiting. Diamox 125 mg daily started. Improvement noted. 10. Anemia. Hematology following. 11. Prophylaxis SCDs, IV Protonix and Carafate. BILLING CODE: 08013 TIME SPENT: 35 minutes Dictated by Andre Merrill NP MD [facility] StaffordP/MARILYNL /[id number]
--- NOTE | 2019-11-11 19:15 | NUR ---
Pt visited in room during nursing rounds. Patient alert and oriented x2-3 (i.e. pt tends to forget recent information). Patient has prn sitter order since pt has intermittent confusion where she had ripped off her peripheral IVs and telemetry wires and leads. Will attempt to call daughter or ask for 1:1 sitter tonight. Call flores within reach. Bed alarm active.
--- NOTE | 2019-11-11 19:17 | NUR ---
Asked HS (Marie Burciaga) if there are any possible sitters for this patient tonight and she said no. She suggested I call daughter to ask if she can come and stay with patient in her room tonight to watch over pt.
--- NOTE | 2019-11-11 19:19 | NUR ---
Attempted to call daughter (Yelena Nazario) but she did not answer. Voice mailbox full so SMS message left (i.e. unit phone number: [phone]). Waiting temporary receptionist back from daughter.
--- NOTE | 2019-11-11 19:35 | NUR ---
Was informed by Alexandra Mcleod (Charge Nurse) that she was able to get a hold of the daughter (Yelena Nazario) and that she will be able to come tonight to sit with patient. Daughter will be 1 hour away en route (coming from [place], [place]).
--- NOTE | 2019-11-11 23:43 | NUR ---
Checked on patient tonight and patient is still alert and oriented x3. No display of agitation or confusion at this time. Daughter (Yelena) still not in hospital yet. Might arrived tomorrow (11/12/19).
--- NOTE | 2019-11-11 23:50 | NUR ---
Patient assisted up to the bathroom to urinate and have a bowel movement. Stool was soft and dark brown to black in color. Pt was cleaned and given derick-care. Linens were changed. Inner bilateral buttocks notably reddened and raw. Calazyme cream applied on reddened areas and also applied Allevyn foam dressing. Pt helped back to bed and bed alarm activated. Pt in stable condition. No daughter has arrived to be with patient tonight.
[2019-11-12] VITALS (8 sets, daily range): BP systolic 122–161; BP diastolic 72–99
[2019-11-12] MEDS: PANTOPRAZOL 40MG/SOD CHL 0.9% 50 ML IV SCH ×5 (02:08→22:25)
--- NOTE | 2019-11-12 06:00 | NUR ---
Patient awaken and threw pitcher with ice and water on the floor. Patient ripped off Allevyn foam on buttock and refused for new foam placed at this time. Pt appear quite agitated but did not attempt to take out IVs or try to get up and out of bed. Patient had urinated on the bed and soiled the linen and sheets. Patient stated she wanted to urinate but forgot to call. All linens changed.
[2019-11-12] MEDS: METOCLOPRAMIDE HCL 10 MG/2ML VIAL IV SCH ×3 (06:26→16:58)
[2019-11-12] MEDS: MORPHINE SULFATE INJ 4 MG/ML INJ 1ML IV PRN (06:52)
--- NOTE | 2019-11-12 07:00 | NUR ---
RECEIVED PATIENT RESTING IN BED NO S/S OF DISTRESS. BED LOW, WHEELS LOCKED, SIDE RAILS X2. CALL LIGHT IN REACH WILL CONTINUE TO MONITOR PATIENT.
[2019-11-12] MEDS: SUCRALFATE 1 GM TAB PO SCH ×4 (08:46→20:45)
[2019-11-12] MEDS: ACETAZOLAMIDE 250 MG TAB PO SCH (08:51)
[2019-11-12] MEDS: FAMOTIDINE 20 MG/2 ML VIAL IV SCH ×2 (08:51→16:00)
[2019-11-12 09:03] LABS: BASOPHILS % 0.4 % (0.0-1.0); EOSINOPHILS % 0.5 % (0.0-6.0); HEMATOCRIT 26.2 % (34.2-44.1); HEMOGLOBIN 8.7 g/dL (12.0-16.0); LYMPHOCYTES % 12.2 % (18.0-39.1); MEAN CORPUSCULAR HGB CONC 33.2 g/dL (31-35); MEAN CORPUSCULAR VOLUME 96.3 fL (81-99); MONOCYTES # (AUTO) 0.7 (0.2-0.8); NEUTROPHILS # (AUTO) 6.1 (2.1-6.9); NEUTROPHILS % 77.1 % (38.7-80.0); PLATELET COUNT 343 x10e3/uL (140-360); RED BLOOD COUNT 2.72 x10e6/uL (3.6-5.1); RED CELL DISTRIBUTION WIDTH 12.2 % (11.7-14.4)
[2019-11-12 09:29] LABS: ANION GAP 14.6 mmol/L (8-16); BLOOD UREA NITROGEN 8 mg/dL (7-26); BUN/CREATININE RATIO 11 (6-25); CALCIUM 8.6 mg/dL (8.4-10.2); CARBON DIOXIDE 22 mmol/L (22-29); CHLORIDE 95 mmol/L (98-107); CREATININE, SERUM 0.71 mg/dL (0.57-1.11); EST GLOMERULAR FILTRATION RATE > 60 ML/MIN (60-); GLUCOSE 81 mg/dL (74-118); MAGNESIUM 1.4 MG/DL (1.3-2.1); SODIUM 128 mmol/L (136-145)
[2019-11-12 09:32] LABS: POTASSIUM 3.6 mmol/L (3.5-5.1)
[2019-11-12] MEDS: HYDROCODONE/APAP 10MG-325MG TAB PO PRN (15:14)
[2019-11-12] MEDS ORDERED: MAGNESIUM SULFATE 2GM/50ML 50 ML IV ONE ×2 (15:30→17:30)
[2019-11-12] MEDS ORDERED: SODIUM PHOSPHATE 3 MMOL/ML INJ IV ONE (15:30)
[2019-11-12] MEDS: SODIUM CHLORIDE 1 GM TAB PO SCH (15:50)
[2019-11-12] MEDS ORDERED: SODIUM PHOSPHATE 20 MMOL in SODIUM CHLORIDE 0.9% 250ML 250 ML IV ONE (16:00)
--- NOTE | 2019-11-12 19:35 | NUR ---
Pt visited in room during nursing rounds. Patient alert and oriented x2-3 (i.e. pt tends to forget recent information but easy to re-orient). Patient has prn sitter order but patient has been calm and has not displayed any behavior that warrants the need for a sitter at this time.Pt receiving Protonix drip (10ml/hr). Call flores within reach. Bed alarm active.
[2019-11-13] VITALS (8 sets, daily range): BP systolic 125–163; BP diastolic 77–92
[2019-11-13] MEDS: METOCLOPRAMIDE HCL 10 MG/2ML VIAL IV SCH ×4 (00:25→17:51)
[2019-11-13] MEDS: HYDROCODONE/APAP 10MG-325MG TAB PO PRN ×2 (02:20→11:39)
[2019-11-13] MEDS: PANTOPRAZOL 40MG/SOD CHL 0.9% 50 ML IV SCH ×4 (03:26→17:50)
[2019-11-13 05:29] LABS: BASOPHILS % 0.2 % (0.0-1.0); EOSINOPHILS # (AUTO) 0.1 (0.0-0.4); EOSINOPHILS % 0.6 % (0.0-6.0); HEMATOCRIT 27.8 % (34.2-44.1); HEMOGLOBIN 9.2 g/dL (12.0-16.0); LYMPHOCYTES # (AUTO) 1.9 (1.0-3.2); LYMPHOCYTES % 20.3 % (18.0-39.1); MEAN CORPUSCULAR HEMOGLOBIN 30.9 pg (28-32); MEAN CORPUSCULAR HGB CONC 33.1 g/dL (31-35); MEAN CORPUSCULAR VOLUME 93.3 fL (81-99); MONOCYTES # (AUTO) 0.9 (0.2-0.8); MONOCYTES % 9.4 % (4.4-11.3); NEUTROPHILS # (AUTO) 6.4 (2.1-6.9); NEUTROPHILS % 68.6 % (38.7-80.0); PLATELET COUNT 484 x10e3/uL (140-360); RED BLOOD COUNT 2.98 x10e6/uL (3.6-5.1); RED CELL DISTRIBUTION WIDTH 12.6 % (11.7-14.4)
[2019-11-13 05:52] LABS: ANION GAP 14.3 mmol/L (8-16); BLOOD UREA NITROGEN 8 mg/dL (7-26); BUN/CREATININE RATIO 10 (6-25); CALCIUM 8.6 mg/dL (8.4-10.2); CARBON DIOXIDE 22 mmol/L (22-29); CHLORIDE 97 mmol/L (98-107); CREATININE, SERUM 0.78 mg/dL (0.57-1.11); EST GLOMERULAR FILTRATION RATE > 60 ML/MIN (60-); GLUCOSE 88 mg/dL (74-118); PHOSPHORUS 2.8 MG/DL (2.3-4.7); POTASSIUM 3.3 mmol/L (3.5-5.1); SODIUM 130 mmol/L (136-145)
--- NOTE | 2019-11-13 06:00 | NUR ---
Patient woke up and called for nurse. Pt stated she wanted her bill for the hospital. Patient informed that she does not need to worry about that at this time. Patient observed to have intermittent episodes of confusion but easy to re-orient.
--- NOTE | 2019-11-13 08:20 | NUR ---
ON PHONE WITH INSURANCE TO FIND IN NETWORK FACILITIES.
--- NOTE | 2019-11-13 08:30 | NUR ---
[facility], [facility], AND [facility].
[2019-11-13] MEDS: FAMOTIDINE 20 MG/2 ML VIAL IV SCH ×2 (08:42→17:50)
[2019-11-13] MEDS: SUCRALFATE 1 GM TAB PO SCH ×4 (08:42→21:00)
[2019-11-13] MEDS: SODIUM CHLORIDE 1 GM TAB PO SCH ×3 (08:42→17:50)
[2019-11-13] MEDS: ACETAZOLAMIDE 250 MG TAB PO SCH (08:42)
[2019-11-13] MEDS: MORPHINE SULFATE INJ 4 MG/ML INJ 1ML IV PRN (08:43)
--- NOTE | 2019-11-13 08:52 | NUR ---
SPOKE WITH PT, SHE CHOSE [facility] SINCE IT IS CLOSER TO HER HOME, ASKED FOR ME TO CALL DAUGHTER SHONDA, CALLED VOICE MAIL IS FULL AND NO ANSWER. WILL FAX CLINICALS TO FACILITY, COMPLETE PASRR AND COVID FORM TO PUT WITH PACKET AND RTF.
[2019-11-13] MEDS: POTASSIUM CHLORIDE 20 MEQ TAB CR PO SCH ×2 (09:55→17:50)
--- NOTE | 2019-11-13 10:32 | Progress Note ---
DATE: CONSULTING PHYSICIANS: Dr. Angeles with Pain Management; Dr. Andre with Oncology/Hematology; and Dr. Josue Montelongo with Gastroenterology. SUBJECTIVE: The patient is supine in bed. She states that she is very tired. She has a congested cough, is sleepy, not really interactive. States she did work with physical therapy today. OBJECTIVE: VITAL SIGNS: Temperature 99.2, heart rate 87, blood pressure 146/99, respirations 16, oxygen saturation 95%. GENERAL: Supine, stuporous, will fall back to sleep if not aroused and awoken. LUNGS: Diminished at the bases. Oxygen at 2 L/minute humidified via nasal cannula. HEENT: EOMI. Neck supple. No JVD. CARDIOVASCULAR: Regular rate and rhythm without murmur. ABDOMEN: Bowel sounds positive. Soft, nontender. EXTREMITIES: Without pitting edema. No clubbing, cyanosis, or marked swelling. NEUROLOGICAL: GCS 14, Eye 3, verbal 5, motor 6, lethargic to stuporous. LABORATORY DATA: Sodium 128, potassium 3.6, chloride 95, CO2 22, BUN 8, creatinine 0.71, estimated GFR greater than 60. Calcium 8.6, phosphorus 2.0, magnesium 1.4. WBC 7.89, hemoglobin 8.7, hematocrit 26.2, platelets 343,000. On 11/08, coronavirus not detected. Esophageal fungal smear preliminary shows yeast species. No new imaging studies. ASSESSMENT/PLAN: 1. Giant ulcer in duodenal bulb causing partial gastric outlet obstruction, diffusely ulcerated distal half of the esophagus with yeast. Gastroenterology following. The patient tolerating full liquid diet well and has been advanced to GI soft/pureed diet. Continue Reglan p.r.n. and Zofran for nausea. 2. Metabolic encephalopathy, possibly due to alkalosis with electrolyte imbalances. One-to-one sitter p.r.n., continue use of oxygen, wean oxygen to room air as tolerated, electrolyte repletion p.r.n. 3. Acute kidney injury, resolved. Creatinine 0.79 yesterday and 0.71 today. She is currently not on any IV fluids. Monitor. 4. Hypoxia. Continue supplemental oxygen, weaned to room air as tolerated. Encourage incentive spirometry. 5. Squamous cell cancer of the right upper lobe of the lung with acute on chronic pain, debility. Physical therapy evaluation and treatment. Oncology and Pain Management following. Orders have been entered for case management for [facility] evaluation for placement. 6. Acute hyponatremia. Sodium level 128 (133), 20 millimoles sodium phosphate once and daily sodium chloride 2 g tablets daily. 7. Acute hypokalemia. Potassium level 3.6 (2.9), repleted with 20 mEq potassium chloride p.o. once today. 8. Acute hypophosphatemia. Phosphorus level 2.0 (1.8, 1.6), sodium phosphate 20 mmol IV once today. 9. Acute hypomagnesemia. Magnesium level 1.4 (1.8, 1.4). 4 g of magnesium sulfate IV ordered once today. 10. Metabolic alkalosis with recent nausea and vomiting. Diamox 125 mg daily. Serum bicarbonate 22 (35). Monitor closely. May be able to discontinue Diamox tomorrow. 11. Anemia. Hematology following. Continue same. 12. Prophylaxis, SCDs, IV Protonix and Carafate. Billing code [id number]. Time spent 35 minutes. Dictated by Andre Merrill NP MD MA[facility]IC[facility] StaffordP/MARILYNL /[id number]
--- NOTE | 2019-11-13 15:33 | NUR ---
FACILITY CALLED TO STATE PT WAS DENIED SNF, ASKED FOR REASON WHY AND IF THERE IS A PEER TO PEER OFFERED. WAITING ON RESPONSE.
--- NOTE | 2019-11-13 19:22 | NUR ---
Patient received lying in bed. AAO x 3. Patient had no complaints of pain. Respirations even and non-labored on 3L NC. Fall precautions implemented. Patient instructed to call for assistance when needed. Call light within reach.
--- NOTE | 2019-11-13 22:45 | Progress Note ---
DATE: 11/13/2019 The patient's CBC is stable with a hemoglobin of 9.2, white count of 9360, and platelets of 444,000. Chemistry still shows the patient to be hypokalemic and hyponatremic. Sodium of 130, potassium 3.3, chloride is 97, CO2 of 22, highly suggestive of inappropriate ADH secretion as well as the patient is receiving potassium supplement by the attending physician. The fungal smears show Erika albicans. I will confine myself to Hematology Oncology. The supportive care is given to this patient is stage IV lung cancer, however, large gastric ulcer as well as duodenal ulcer. Plate Put In Worker is on the case. MD HEATHER Barakat/LAURA /[id number]
[2019-11-14] VITALS (8 sets, daily range): BP systolic 128–149; BP diastolic 82–91
[2019-11-14] MEDS: PANTOPRAZOL 40MG/SOD CHL 0.9% 50 ML IV SCH ×6 (00:35→23:46)
[2019-11-14] MEDS: MORPHINE SULFATE INJ 4 MG/ML INJ 1ML IV PRN ×3 (00:35→20:14)
[2019-11-14] MEDS: METOCLOPRAMIDE HCL 10 MG/2ML VIAL IV SCH ×5 (00:35→23:46)
[2019-11-14 05:57] LABS: BASOPHILS % 0.5 % (0.0-1.0); EOSINOPHILS # (AUTO) 0.1 (0.0-0.4); EOSINOPHILS % 0.7 % (0.0-6.0); HEMATOCRIT 26.1 % (34.2-44.1); HEMOGLOBIN 8.8 g/dL (12.0-16.0); LYMPHOCYTES # (AUTO) 1.1 (1.0-3.2); LYMPHOCYTES % 12.5 % (18.0-39.1); MEAN CORPUSCULAR HGB CONC 33.7 g/dL (31-35); MEAN CORPUSCULAR VOLUME 97.8 fL (81-99); MONOCYTES # (AUTO) 0.8 (0.2-0.8); MONOCYTES % 9.3 % (4.4-11.3); NEUTROPHILS # (AUTO) 6.6 (2.1-6.9); NEUTROPHILS % 75.6 % (38.7-80.0); PLATELET COUNT 444 x10e3/uL (140-360); RED BLOOD COUNT 2.67 x10e6/uL (3.6-5.1); RED CELL DISTRIBUTION WIDTH 12.9 % (11.7-14.4)
[2019-11-14 06:10] LABS: ANION GAP 14.6 mmol/L (8-16); BLOOD UREA NITROGEN 8 mg/dL (7-26); BUN/CREATININE RATIO 10 (6-25); CALCIUM 8.7 mg/dL (8.4-10.2); CARBON DIOXIDE 21 mmol/L (22-29); CHLORIDE 101 mmol/L (98-107); CREATININE, SERUM 0.78 mg/dL (0.57-1.11); EST GLOMERULAR FILTRATION RATE > 60 ML/MIN (60-); GLUCOSE 84 mg/dL (74-118); MAGNESIUM 1.5 MG/DL (1.3-2.1); POTASSIUM 3.6 mmol/L (3.5-5.1); SODIUM 133 mmol/L (136-145)
[2019-11-14 06:58] LABS: FERRITIN 260.69 ng/mL (4.63-204.00)
--- NOTE | 2019-11-14 07:00 | NUR ---
Patient resting comfortably. Walking rounds done . Bed-side report given to oncoming nurse.
[2019-11-14] MEDS: SUCRALFATE 1 GM TAB PO SCH ×4 (08:08→20:14)
[2019-11-14] MEDS: FAMOTIDINE 20 MG/2 ML VIAL IV SCH (09:16)
[2019-11-14] MEDS: ACETAZOLAMIDE 250 MG TAB PO SCH (09:16)
[2019-11-14] MEDS: SODIUM CHLORIDE 1 GM TAB PO SCH ×2 (09:16→17:40)
[2019-11-14] MEDS: METRONIDAZOLE 500MG/NS 100ML 100 ML IV SCH ×2 (09:16→21:21)
[2019-11-14] MEDS: POTASSIUM CHLORIDE 20 MEQ TAB CR PO SCH (09:16)
--- NOTE | 2019-11-14 09:32 | Progress Note ---
DATE: 11/14/2019 SUBJECTIVE: Alexandra Nazario is a 59-year-old female referred to me for evaluation of lung cancer. The patient did have GI bleed. The patient has been transfused. Today, the hemoglobin is stable at 8.8, white count of 8750, and platelets of 444,000. The patient's sodium is 133, potassium 3.6, chloride is 101, CO2 of 21, and calcium 8.7. I have spoken to the consultants, physician records management assistant that she has had lung cancer for more than two years, treated by Dr. Marshall, still fairly active with a mass at the right apex. The GI findings were also discussed. The patient has refused the possibility of hospice best supportive care during this hospitalization, and once discharged the patient can be followed up and treated by Dr. Marshall. MD HEATHER Barakat/LAURA /[id number]
[2019-11-14] MEDS: HYDROCODONE/APAP 10MG-325MG TAB PO PRN ×2 (12:28→23:47)
--- NOTE | 2019-11-14 13:05 | NUR ---
SPOKE WITH FACILITY, THEY STATE NOT SKILLABLE. ONCE MEDS HERE STOP SHE WILL QUIT EATING AND NOT PARTICIPATE, THEREFOR THEY ARE GOING TO DECLINE PLACEMENT. IF PT STAYS ON CANCER MEDICATIONS THEY ARE TOO EXPENSIVE FOR FACILITY TO MAINTAIN.
[2019-11-14] MEDS: FLUCONAZOLE 200 MG/100 ML 100 ML IV SCH (14:21)
--- NOTE | 2019-11-14 14:45 | NUR ---
SPOKE WITH PT, LET HER KNOW ABOUT COURTYARDS, GAVE OTHER OPTIONSIN NETWORK, SHE CHOSE [facility], FAXED CLINICALS TO FACILITY.
--- NOTE | 2019-11-14 19:30 | NUR ---
Received pt in bed alert. Bedside report given, bed in low and locked position. No s/sx of acute distress noted.
[2019-11-15] VITALS (8 sets, daily range): BP systolic 123–155; BP diastolic 80–98
[2019-11-15] MEDS: PANTOPRAZOL 40MG/SOD CHL 0.9% 50 ML IV SCH ×2 (04:45→09:45)
[2019-11-15] MEDS: METOCLOPRAMIDE HCL 10 MG/2ML VIAL IV SCH ×4 (06:00→23:23)
[2019-11-15 06:05] LABS: BASOPHILS % 0.4 % (0.0-1.0); EOSINOPHILS # (AUTO) 0.2 (0.0-0.4); EOSINOPHILS % 1.9 % (0.0-6.0); HEMATOCRIT 26.2 % (34.2-44.1); HEMOGLOBIN 8.4 g/dL (12.0-16.0); LYMPHOCYTES # (AUTO) 1.3 (1.0-3.2); LYMPHOCYTES % 15.5 % (18.0-39.1); MEAN CORPUSCULAR HGB CONC 32.1 g/dL (31-35); MEAN CORPUSCULAR VOLUME 96.7 fL (81-99); MONOCYTES # (AUTO) 0.7 (0.2-0.8); NEUTROPHILS # (AUTO) 5.8 (2.1-6.9); NEUTROPHILS % 71.6 % (38.7-80.0); PLATELET COUNT 506 x10e3/uL (140-360); RED BLOOD COUNT 2.71 x10e6/uL (3.6-5.1); RED CELL DISTRIBUTION WIDTH 13.1 % (11.7-14.4)
[2019-11-15 06:19] LABS: ALANINE AMINOTRANSFERASE 14 IU/L (0-55); ALBUMIN 2.6 g/dL (3.5-5.0); ALBUMIN/GLOBULIN RATIO 0.9 (0.8-2.0); ALKALINE PHOSPHATASE 56 IU/L (40-150); ANION GAP 12.5 mmol/L (8-16); BLOOD UREA NITROGEN 8 mg/dL (7-26); BUN/CREATININE RATIO 10 (6-25); CALCIUM 8.7 mg/dL (8.4-10.2); CARBON DIOXIDE 21 mmol/L (22-29); CHLORIDE 105 mmol/L (98-107); CREATININE, SERUM 0.79 mg/dL (0.57-1.11); EST GLOMERULAR FILTRATION RATE > 60 ML/MIN (60-); GLUCOSE 91 mg/dL (74-118); POTASSIUM 3.5 mmol/L (3.5-5.1); SODIUM 135 mmol/L (136-145)
--- NOTE | 2019-11-15 07:00 | NUR ---
RECEIVED PATIENT RESTING IN BED NO S/S OF DISTRESS. BED LOW, WHEELS LOCKED, SIDE RAILS X2. CALL LIGHT IN REACH WILL CONTINUE TO MONITOR PATIENT.
[2019-11-15] MEDS: SODIUM CHLORIDE 1 GM TAB PO SCH ×2 (09:44→16:15)
[2019-11-15] MEDS: METRONIDAZOLE 500MG/NS 100ML 100 ML IV SCH ×2 (09:44→20:49)
[2019-11-15] MEDS: ACETAZOLAMIDE 250 MG TAB PO SCH (09:44)
[2019-11-15] MEDS: SUCRALFATE 1 GM TAB PO SCH ×4 (09:44→20:49)
[2019-11-15] MEDS: HYDROCODONE/APAP 10MG-325MG TAB PO PRN ×3 (09:45→18:04)
[2019-11-15] MEDS: IRON SUCROSE 100 MG in SODIUM CHLORIDE 0.9% 100 ML 100 ML IV SCH (10:49)
--- NOTE | 2019-11-15 12:59 | Progress Note ---
DATE: 11/15/2019 Alexandra Nazario is a 59-year-old female, who was referred to me for evaluation of lung cancer. Hematologically, the patient is still stable with a hemoglobin of 8.4, hematocrit 26.2, white count of 8900, and platelets of 506,000. This is consistent with anemia of chronic disease, perhaps even some bleeding because of multiple findings of a large peptic ulcer, gastritis, and esophagitis as documented by Dr. Josue Montelongo. The cultures from the esophagus have shown Erika albicans. She has a stage IV lung cancer, treated by Dr. Marshall in the past. She has stable disease the last 2 years, however, her prognosis still remains extremely poor because of the active disease. I am confining myself to Hematology/Oncology for the acute problems which she has at this time. Once she goes home, she will be re-seen by Dr. Marshall and treated appropriately. Oncologically at this time, I would have no suggestions. Possibility of hospice was discussed with her, however, she has refused the idea of hospice. MD HEATHER Barakat/LAURA /[id number]
[2019-11-15] MEDS: FLUCONAZOLE 200 MG/100 ML 100 ML IV SCH (13:35)
--- NOTE | 2019-11-15 17:29 | NUR ---
Nutrition Intervention Note RD Recommendation(s) for Physician: -Continue current diet as ordered -Ensure Enlive BID for added nutrition Plan of Care: RD following, monitoring for tolerance and adequacy Nutrition reason for involvement: length of stay RD Assessment (11/15/19) Pt is a 59 year old female admitted with gastric outlet obstruction, renal insufficiency, and hypoxia. Pt reports eating <50% of meals since admission. Pt stated she usually weighs 160 lbs, but was unsure of when she last weighed this amount. Pt currently weighs 153 lbs per chart. No N/V/D/C or chewing/swallowing issues. Recommend Ensure Enlive for added nutrition. Will continue to monitor Principal Problems/Diagnoses: gastric outlet obstruction, renal insufficiency, and hypoxia PMH: stage 4 lung cancer s/p chemotherapy and radiation GI: soft, non-tender, round abdomen, last recorded BM 11/10 Skin: intact Labs: (11/14) Na 135, K 3.5, BUN 8. Cr 0.79, Glu 91, HgbA1c 5.8%, Ca 8.7 Meds: carafate, reglan, IV iron, morphine, zofran, metoprolol Ht: 66 inches Wt:153 lbs BMI: 24.7 kg/m2 IBW: 130 lbs Malnutrition Evaluation (11/15/19) The patient does not meet criteria for a specified degree of malnutrition at this time. Will re-evaluate at follow-up as appropriate. Energy intake: <50% of estimated energy requirements for >5 days Weight loss: Unable to assess Fat loss: unable to evaluate Muscle loss: unable to evaluate Supporting Evidence: Fluid accumulation: unable to evaluate Functional Status: unable to evaluate Nutrition Prescription (Diet Order): pureed/GI soft diet Estimated Nutritional Needs: 8978-0367 calories/day (25-30 kcal/kg CBW) 70-104 g protein/day (1-1.5 g pro/kg CBW) Diet Adequacy: Not meeting calorie needs, Not meeting protein needs Tolerance: Tolerating PO Diet Education Needs Assessment: Nutrition Care Level: low Nutrition Diagnosis: Inadequate energy intake related to decreased ability to consume sufficient energy as evidenced by pt reports eating <50% of meals. Goal: Patient will meet 75-100% of estimated needs by follow up Progress: N/A Interventions: -modified diet, Commercial beverage Monitoring/Evaluation: -Total energy intake, Total protein intake, , Modified diet, Liquid supplement, Weight change Signed: Mary Moreno RD, LD
--- NOTE | 2019-11-15 19:16 | Progress Note ---
DATE: SUBJECTIVE: The patient is lying supine in bed. Has very mild shortness of breath. Complains of some right arm soreness. Has difficulty and cannot squeeze her right hand. OBJECTIVE: VITAL SIGNS: Temperature 98.0, heart rate 89, blood pressure 163/88, respirations 18, and oxygen saturation 97%. GENERAL: No acute distress. LUNGS: Clear to auscultation. Respirations even and nonlabored. Diminished in the bases. She is on oxygen at 2 L/minute via nasal cannula. HEENT: EOMI. NECK: Supple. CARDIOVASCULAR: Regular rate and rhythm without murmur. ABDOMEN: Bowel sounds positive. Soft, nontender. No guarding. EXTREMITIES: No pitting edema. No clubbing, cyanosis, or signs of DVT. NEUROLOGIC: GCS 15, nonfocal. Currently calm, not picking at lines or attempting to get out of bed without assistance. DIAGNOSTIC LABORATORY DATA: WBCs 9.36, hemoglobin 9.2, hematocrit 27.8, platelets 484. Sodium 130, potassium 3.3, chloride 97, CO2 of 22, anion gap 14.3, BUN 8, creatinine 0.78, estimated GFR greater than 60, glucose 88, calcium 8.6, phosphorus 2.8, magnesium 2.0. IMAGING: No new imaging studies. ASSESSMENT/PLAN: 1. Giant ulcer in the duodenal bulb, causing partial gastric outlet obstruction, diffusely ulcerated distal half of the esophagus with yeast. Gastroenterology following. Continue GI soft diet as tolerated. Continue Raglan as well as Zofran p.r.n. for nausea. 2. Metabolic encephalopathy, one-to-one sitter p.r.n. wean oxygen to room air as tolerated. Electrolyte repletion p.r.n. 3. Acute kidney injury, resolved. BUN 8, creatinine 0.78, estimated GFR greater than 60. 4. Hypoxia, wean supplemental oxygen to room air as tolerated. Encourage incentive spirometry. 5. 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 Oncology and Pain Management following, appreciate recommendations. 6. Acute hyponatremia, sodium level 130 (128, 133). Sodium chloride 2 g tablets b.i.d. and monitor sodium level. 7. Acute hypokalemia, potassium level 3.3 (3.6, 2.9), 40 mEq of potassium chloride b.i.d. x2 doses today, then stop. 8. Acute hypophosphatemia. Phosphorus level 2.8 (2.0, 1.8, 1.6). Monitor. 9. Acute hypomagnesemia, magnesium level 2.0 (1.4, 1.8, 1.4), monitor. 10. Recent metabolic alkalosis with nausea and vomiting. Serum bicarbonate level 22 (22, 35). Monitor closely. Consider discontinuing Diamox soon. 11. Anemia, hemoglobin 9.2, hematocrit 27.8. Hematology following. Continue same. 12. Prophylaxis. SCDs, IV Protonix, Pepcid and Carafate. DISCHARGE PLAN: [facility]. Billing code 51316. Time spent 45 minutes. Dictated by Andre Merrill NP MD PEGGY Stafford/MARILYNL /[id number]
[2019-11-15] MEDS ORDERED: SODIUM CHLORIDE 0.9% 250ML 250 ML ONE (20:44)
[2019-11-15] MEDS: MORPHINE SULFATE INJ 4 MG/ML INJ 1ML IV PRN (22:52)
--- NOTE | 2019-11-15 23:18 | NUR ---
SPOKE TO MD YUEN AT BEDSIDE. ORDER TO RESUME PROTONIX DRIP.
[2019-11-16] VITALS (7 sets, daily range): BP systolic 111–142; BP diastolic 65–98
[2019-11-16] MEDS: PANTOPRAZOLE INJ 40 MG in SODIUM CHLORIDE 0.9% 50ML 50 ML IV SCH ×5 (00:22→22:00)
--- NOTE | 2019-11-16 00:40 | NUR ---
PATIENT C/O PAIN TO L WRIST WITH FLUSH TO L FA 20G IV. ERYTHEMA TO AREA. D/C IV CATHETER TIP INTACT. CDI DRESSING APPLIED. TOLERATED WELL.
[2019-11-16] MEDS: HYDROCODONE/APAP 10MG-325MG TAB PO PRN ×5 (01:29→22:06)
[2019-11-16] MEDS ORDERED: GLIPIZIDE5 MG PO (02:28)
[2019-11-16] MEDS ORDERED: JANUMET 50-1,01 EACH PO (02:28)
[2019-11-16] MEDS ORDERED: LISINOPRIL10 MG PO (02:28)
[2019-11-16] MEDS ORDERED: EMPAGLIFLOZIN PO (02:28)
[2019-11-16] MEDS ORDERED: metoprolol PO (02:28)
[2019-11-16] MEDS: METOCLOPRAMIDE HCL 10 MG/2ML VIAL IV SCH ×3 (05:48→16:56)
--- NOTE | 2019-11-16 06:09 | NUR ---
20G IV TO L AC STARTED. BLOOD RETURN. SALINE FLUSHES. CDI DRESSING APPLIED. TOLERATED PROCEDURE WELL.
[2019-11-16 06:19] LABS: BASOPHILS # (AUTO) 0.1 (0.0-0.1); BASOPHILS % 0.5 % (0.0-1.0); EOSINOPHILS # (AUTO) 0.1 (0.0-0.4); HEMATOCRIT 24.9 % (34.2-44.1); LYMPHOCYTES # (AUTO) 1.2 (1.0-3.2); LYMPHOCYTES % 12.2 % (18.0-39.1); MEAN CORPUSCULAR HEMOGLOBIN 31.1 pg (28-32); MEAN CORPUSCULAR HGB CONC 32.1 g/dL (31-35); MEAN CORPUSCULAR VOLUME 96.9 fL (81-99); MONOCYTES # (AUTO) 0.9 (0.2-0.8); MONOCYTES % 9.1 % (4.4-11.3); NEUTROPHILS # (AUTO) 7.5 (2.1-6.9); PLATELET COUNT 501 x10e3/uL (140-360); RED BLOOD COUNT 2.57 x10e6/uL (3.6-5.1); RED CELL DISTRIBUTION WIDTH 13.1 % (11.7-14.4)
[2019-11-16 06:40] LABS: ALANINE AMINOTRANSFERASE 12 IU/L (0-55); ALBUMIN 2.5 g/dL (3.5-5.0); ALBUMIN/GLOBULIN RATIO 0.8 (0.8-2.0); ALKALINE PHOSPHATASE 60 IU/L (40-150); ANION GAP 14.8 mmol/L (8-16); BLOOD UREA NITROGEN 8 mg/dL (7-26); BUN/CREATININE RATIO 10 (6-25); CALCIUM 8.6 mg/dL (8.4-10.2); CARBON DIOXIDE 18 mmol/L (22-29); CHLORIDE 104 mmol/L (98-107); CREATININE, SERUM 0.79 mg/dL (0.57-1.11); EST GLOMERULAR FILTRATION RATE > 60 ML/MIN (60-); GLUCOSE 73 mg/dL (74-118); POTASSIUM 3.8 mmol/L (3.5-5.1); SODIUM 133 mmol/L (136-145)
--- NOTE | 2019-11-16 07:00 | NUR ---
RECEIVED PATIENT RESTING IN BED NO S/S OF DISTRESS. BED LOW, WHEELS LOCKED, SIDE RAILS X2. CALL LIGHT IN REACH WILL CONTINUE TO MONITOR PATIENT.
--- NOTE | 2019-11-16 07:06 | NUR ---
REPORT GIVEN TO DAYSHIFT NURSE. ALERT AND RESTING IN BED. NO SIGNS IV INFILTRATION. BED LOCKED AND IN LOW POSITION. CALL LIGHT WITHIN REACH. BED ALARM ACTIVATED.
--- NOTE | 2019-11-16 09:07 | NUR ---
SPOKE WITH FACILITY STILL PENDING
[2019-11-16] MEDS: METRONIDAZOLE 500MG/NS 100ML 100 ML IV SCH ×2 (09:31→20:30)
[2019-11-16] MEDS: SODIUM CHLORIDE 1 GM TAB PO SCH ×2 (09:37→16:24)
[2019-11-16] MEDS: SUCRALFATE 1 GM TAB PO SCH ×4 (09:37→20:30)
[2019-11-16] MEDS: ACETAZOLAMIDE 250 MG TAB PO SCH (09:37)
[2019-11-16] MEDS: IRON SUCROSE 100 MG in SODIUM CHLORIDE 0.9% 100 ML 100 ML IV SCH (10:42)
[2019-11-16] MEDS: FLUCONAZOLE 100 MG TAB PO SCH (13:24)
--- NOTE | 2019-11-16 17:08 | NUR ---
Discontinuing skilled PT services due to patient request. Addendum: 11/16/19 at 1709 by Farhan singh PT Amended: Links added.
--- NOTE | 2019-11-16 18:21 | Progress Note ---
DATE: 11/16/2019 The patient is alert. Dr. Carpenter is awaiting for her to be placed, as she is debilitated to go home. The patient's sodium is still 133. Blood sugar is running reasonable at 73. Hematologically, she is stable with a hemoglobin of 8, white count of 9850, and platelets of 501,000. We will continue to follow her hematologically, as oncologically, I do not have any to add. Thank you for allowing me to participate in management of this patient during this hospitalization. MD HEATHER Barakat/LAURA /[id number]
[2019-11-17] VITALS (7 sets, daily range): BP systolic 117–156; BP diastolic 74–92
[2019-11-17] MEDS: METOCLOPRAMIDE HCL 10 MG/2ML VIAL IV SCH ×4 (00:37→17:26)
[2019-11-17] MEDS: HYDROCODONE/APAP 10MG-325MG TAB PO PRN ×4 (02:14→22:43)
[2019-11-17] MEDS: PANTOPRAZOLE INJ 40 MG in SODIUM CHLORIDE 0.9% 50ML 50 ML IV SCH ×3 (03:01→16:41)
[2019-11-17 06:40] LABS: BASOPHILS % 0.2 % (0.0-1.0); EOSINOPHILS % 0.4 % (0.0-6.0); HEMATOCRIT 23.8 % (34.2-44.1); HEMOGLOBIN 7.6 g/dL (12.0-16.0); LYMPHOCYTES % 10.1 % (18.0-39.1); MEAN CORPUSCULAR HEMOGLOBIN 30.6 pg (28-32); MEAN CORPUSCULAR HGB CONC 31.9 g/dL (31-35); MONOCYTES # (AUTO) 0.6 (0.2-0.8); MONOCYTES % 6.7 % (4.4-11.3); NEUTROPHILS # (AUTO) 7.8 (2.1-6.9); NEUTROPHILS % 81.4 % (38.7-80.0); PLATELET COUNT 487 x10e3/uL (140-360); RED BLOOD COUNT 2.48 x10e6/uL (3.6-5.1); RED CELL DISTRIBUTION WIDTH 13.2 % (11.7-14.4)
--- NOTE | 2019-11-17 07:00 | NUR ---
RECEIVED BEDSIDE REPORT FROM OFF GOING NIGHT NURSE. PATIENT IN STABLE CONDITION, NO S/S OF DISTRESS NOTED. NO PAIN VOICED. TELEMETRY APPLIED. IV SITE ASYMPTOMATIC AND PATENT, TRANSPARENT DRESSING C/D/I. BED IN LOWEST POSITION AND LOCKED. CALL LIGHT WITHIN REACH.
[2019-11-17 07:02] LABS: ALANINE AMINOTRANSFERASE 10 IU/L (0-55); ALBUMIN 2.4 g/dL (3.5-5.0); ALBUMIN/GLOBULIN RATIO 0.8 (0.8-2.0); ALKALINE PHOSPHATASE 58 IU/L (40-150); ANION GAP 14.2 mmol/L (8-16); BLOOD UREA NITROGEN 8 mg/dL (7-26); BUN/CREATININE RATIO 11 (6-25); CALCIUM 8.5 mg/dL (8.4-10.2); CARBON DIOXIDE 21 mmol/L (22-29); CHLORIDE 105 mmol/L (98-107); CREATININE, SERUM 0.76 mg/dL (0.57-1.11); EST GLOMERULAR FILTRATION RATE > 60 ML/MIN (60-); GLUCOSE 94 mg/dL (74-118); POTASSIUM 3.2 mmol/L (3.5-5.1); SODIUM 137 mmol/L (136-145)
--- NOTE | 2019-11-17 07:16 | NUR ---
REPORT GIVEN TO DAYSHIFT NURSE. ALERT AND RESTING IN BED. NO SIGNS IV INFILTRATION. BED LOCKED AND IN LOW POSITION. CALL LIGHT WITHIN REACH.
[2019-11-17] MEDS: SUCRALFATE 1 GM TAB PO SCH ×4 (07:30→21:42)
[2019-11-17] MEDS: SODIUM CHLORIDE 1 GM TAB PO SCH ×2 (08:25→16:42)
[2019-11-17] MEDS: IRON SUCROSE 100 MG in SODIUM CHLORIDE 0.9% 100 ML 100 ML IV SCH (08:25)
[2019-11-17] MEDS: ACETAZOLAMIDE 250 MG TAB PO SCH (08:25)
[2019-11-17] MEDS: METRONIDAZOLE 500MG/NS 100ML 100 ML IV SCH ×2 (09:00→21:42)
[2019-11-17] MEDS ORDERED: POTASSIUM CHLORIDE 20 MEQ TAB CR PO SCH (11:45)
[2019-11-17] MEDS: GUAIFENESIN 600 MG TAB PO SCH ×2 (14:00→21:42)
[2019-11-17] MEDS: FLUCONAZOLE 100 MG TAB PO SCH (14:25)
--- NOTE | 2019-11-17 19:35 | NUR ---
COMPLETED BEDSIDE REPORT AND ROUNDING WITH ONCOMING NIGHT NURSE. PATIENT IN STABLE CONDITION, NO S/S OF DISTRESS NOTED. NO PAIN VOICED. TELEMETRY APPLIED. IV FLUIDS INFUSING, SITE ASYMPTOMATIC AND PATENT, TRANSPARENT DRESSING C/D/I. BED IN LOWEST POSITION AND LOCKED, SIDE RAILS X 2. CALL LIGHT WITHIN REACH.
[2019-11-18] VITALS (7 sets, daily range): BP systolic 113–140; BP diastolic 75–88
[2019-11-18] MEDS: METOCLOPRAMIDE HCL 10 MG/2ML VIAL IV SCH ×5 (00:50→23:39)
[2019-11-18] MEDS: PANTOPRAZOLE INJ 40 MG in SODIUM CHLORIDE 0.9% 50ML 50 ML IV SCH ×5 (02:00→18:00)
[2019-11-18] MEDS ORDERED: BISACODYL 5 MG TAB EC PO ONE (02:15)
[2019-11-18] MEDS: HYDROCODONE/APAP 10MG-325MG TAB PO PRN ×5 (04:14→23:40)
[2019-11-18 06:52] LABS: BASOPHILS % 0.3 % (0.0-1.0); EOSINOPHILS # (AUTO) 0.1 (0.0-0.4); EOSINOPHILS % 0.5 % (0.0-6.0); LYMPHOCYTES # (AUTO) 0.9 (1.0-3.2); LYMPHOCYTES % 9.1 % (18.0-39.1); MEAN CORPUSCULAR HEMOGLOBIN 31.1 pg (28-32); MEAN CORPUSCULAR HGB CONC 32.3 g/dL (31-35); MEAN CORPUSCULAR VOLUME 96.2 fL (81-99); MONOCYTES # (AUTO) 0.7 (0.2-0.8); MONOCYTES % 7.3 % (4.4-11.3); NEUTROPHILS # (AUTO) 7.9 (2.1-6.9); NEUTROPHILS % 81.9 % (38.7-80.0); PLATELET COUNT 511 x10e3/uL (140-360); RED BLOOD COUNT 2.35 x10e6/uL (3.6-5.1); RED CELL DISTRIBUTION WIDTH 13.7 % (11.7-14.4)
[2019-11-18 07:05] LABS: HEMATOCRIT 22.6 % (34.2-44.1)
[2019-11-18 07:06] LABS: HEMOGLOBIN 7.3 g/dL (12.0-16.0)
[2019-11-18 07:21] LABS: ALANINE AMINOTRANSFERASE 9 IU/L (0-55); ALBUMIN 2.4 g/dL (3.5-5.0); ALBUMIN/GLOBULIN RATIO 0.9 (0.8-2.0); ALKALINE PHOSPHATASE 58 IU/L (40-150); ANION GAP 13.1 mmol/L (8-16); BLOOD UREA NITROGEN 5 mg/dL (7-26); BUN/CREATININE RATIO 7 (6-25); CALCIUM 8.5 mg/dL (8.4-10.2); CARBON DIOXIDE 19 mmol/L (22-29); CHLORIDE 107 mmol/L (98-107); CREATININE, SERUM 0.71 mg/dL (0.57-1.11); EST GLOMERULAR FILTRATION RATE > 60 ML/MIN (60-); GLUCOSE 87 mg/dL (74-118); POTASSIUM 3.1 mmol/L (3.5-5.1); SODIUM 136 mmol/L (136-145)
[2019-11-18] MEDS: METRONIDAZOLE 500MG/NS 100ML 100 ML IV SCH ×2 (08:21→20:56)
[2019-11-18] MEDS: ACETAZOLAMIDE 250 MG TAB PO SCH (08:21)
[2019-11-18] MEDS: SUCRALFATE 1 GM TAB PO SCH ×4 (08:21→20:56)
[2019-11-18] MEDS: GUAIFENESIN 600 MG TAB PO SCH ×2 (08:21→20:56)
[2019-11-18] MEDS: SODIUM CHLORIDE 1 GM TAB PO SCH ×2 (08:21→16:34)
[2019-11-18] MEDS: IRON SUCROSE 100 MG in SODIUM CHLORIDE 0.9% 100 ML 100 ML IV SCH (09:54)
[2019-11-18] MEDS ORDERED: POTASSIUM CHLORIDE 20 MEQ TAB CR PO NR (11:30)
[2019-11-18] MEDS: GABAPENTIN 100 MG CAP PO SCH (12:32)
[2019-11-18] MEDS: FLUCONAZOLE 100 MG TAB PO SCH (14:55)
[2019-11-19] VITALS (7 sets, daily range): BP systolic 127–159; BP diastolic 75–97
[2019-11-19] MEDS: PANTOPRAZOLE INJ 40 MG in SODIUM CHLORIDE 0.9% 50ML 50 ML IV SCH ×5 (00:36→17:04)
[2019-11-19] MEDS: HYDROCODONE/APAP 10MG-325MG TAB PO PRN ×4 (04:58→19:17)
[2019-11-19] MEDS: METOCLOPRAMIDE HCL 10 MG/2ML VIAL IV SCH ×3 (05:53→17:04)
[2019-11-19 06:36] LABS: BASOPHILS % 0.5 % (0.0-1.0); EOSINOPHILS % 0.5 % (0.0-6.0); LYMPHOCYTES % 11.2 % (18.0-39.1); MEAN CORPUSCULAR HEMOGLOBIN 30.6 pg (28-32); MEAN CORPUSCULAR HGB CONC 31.1 g/dL (31-35); MEAN CORPUSCULAR VOLUME 98.3 fL (81-99); MONOCYTES # (AUTO) 0.7 (0.2-0.8); MONOCYTES % 7.4 % (4.4-11.3); NEUTROPHILS # (AUTO) 7.1 (2.1-6.9); NEUTROPHILS % 79.9 % (38.7-80.0); PLATELET COUNT 394 x10e3/uL (140-360); RED BLOOD COUNT 2.29 x10e6/uL (3.6-5.1); RED CELL DISTRIBUTION WIDTH 13.9 % (11.7-14.4)
[2019-11-19 06:47] LABS: HEMATOCRIT 22.5 % (34.2-44.1)
[2019-11-19 06:54] LABS: ALANINE AMINOTRANSFERASE 11 IU/L (0-55); ALBUMIN 2.4 g/dL (3.5-5.0); ALBUMIN/GLOBULIN RATIO 0.8 (0.8-2.0); ALKALINE PHOSPHATASE 59 IU/L (40-150); ANION GAP 15.6 mmol/L (8-16); BLOOD UREA NITROGEN < 5 mg/dL (7-26); CALCIUM 8.2 mg/dL (8.4-10.2); CARBON DIOXIDE 18 mmol/L (22-29); CHLORIDE 105 mmol/L (98-107); EST GLOMERULAR FILTRATION RATE > 60 ML/MIN (60-); GLUCOSE 81 mg/dL (74-118); SODIUM 136 mmol/L (136-145)
[2019-11-19 06:55] LABS: BUN/CREATININE RATIO 7 (6-25)
[2019-11-19 06:56] LABS: POTASSIUM 2.6 mmol/L (3.5-5.1)
--- NOTE | 2019-11-19 07:40 | NUR ---
Notified attending of critical labs and received orders of for KCL 40mEq po x2.
[2019-11-19] MEDS ORDERED: POTASSIUM CHLORIDE 20 MEQ TAB CR PO STA (07:46)
[2019-11-19] MEDS: SUCRALFATE 1 GM TAB PO SCH ×4 (08:37→20:22)
[2019-11-19] MEDS: METRONIDAZOLE 500MG/NS 100ML 100 ML IV SCH (08:37)
[2019-11-19] MEDS: GUAIFENESIN 600 MG TAB PO SCH ×2 (08:38→20:22)
[2019-11-19] MEDS: ACETAZOLAMIDE 250 MG TAB PO SCH (08:38)
[2019-11-19] MEDS: SODIUM CHLORIDE 1 GM TAB PO SCH ×2 (08:38→16:56)
[2019-11-19] MEDS: GABAPENTIN 100 MG CAP PO SCH (08:38)
[2019-11-19] MEDS: IRON SUCROSE 100 MG in SODIUM CHLORIDE 0.9% 100 ML 100 ML IV SCH (08:39)
[2019-11-19] MEDS ORDERED: SODIUM CHLORIDE 0.9% 250ML 250 ML IV ONE (10:00)
[2019-11-19] MEDS ORDERED: POTASSIUM CHLORIDE 20 MEQ TAB CR PO ONE (12:00)
[2019-11-19] MEDS: FLUCONAZOLE 100 MG TAB PO SCH (15:04)
--- NOTE | 2019-11-19 18:00 | NUR ---
First unit of blood complete. Well tolerated by patient. Denies any pain at this time. Breaths are even and unlabored on room air.
[2019-11-19] MEDS ORDERED: SODIUM CHLORIDE 0.9% 250ML 250 ML ONE (21:11)
[2019-11-20] VITALS: BP 154/95
[2019-11-20] MEDS: METRONIDAZOLE 500MG/NS 100ML 100 ML IV SCH ×2 (00:36→10:00)
[2019-11-20] MEDS: METOCLOPRAMIDE HCL 10 MG/2ML VIAL IV SCH ×3 (00:50→11:27)
[2019-11-20] MEDS: HYDROCODONE/APAP 10MG-325MG TAB PO PRN ×3 (00:51→11:30)
[2019-11-20 04:00] VITALS: BP 121/83
[2019-11-20 06:10] LABS: BASOPHILS % 0.4 % (0.0-1.0); EOSINOPHILS # (AUTO) 0.1 (0.0-0.4); EOSINOPHILS % 0.5 % (0.0-6.0); HEMATOCRIT 28.2 % (34.2-44.1); HEMOGLOBIN 9.5 g/dL (12.0-16.0); LYMPHOCYTES % 10.2 % (18.0-39.1); MEAN CORPUSCULAR HEMOGLOBIN 31.6 pg (28-32); MEAN CORPUSCULAR HGB CONC 33.7 g/dL (31-35); MEAN CORPUSCULAR VOLUME 93.7 fL (81-99); MONOCYTES # (AUTO) 0.7 (0.2-0.8); MONOCYTES % 7.6 % (4.4-11.3); NEUTROPHILS # (AUTO) 7.8 (2.1-6.9); NEUTROPHILS % 80.6 % (38.7-80.0); PLATELET COUNT 375 x10e3/uL (140-360); RED BLOOD COUNT 3.01 x10e6/uL (3.6-5.1); RED CELL DISTRIBUTION WIDTH 18.5 % (11.7-14.4)
[2019-11-20] MEDS: PANTOPRAZOLE INJ 40 MG in SODIUM CHLORIDE 0.9% 50ML 50 ML IV SCH ×2 (06:29→09:00)
[2019-11-20 06:43] LABS: ALANINE AMINOTRANSFERASE 11 IU/L (0-55); ALBUMIN 2.6 g/dL (3.5-5.0); ALBUMIN/GLOBULIN RATIO 0.9 (0.8-2.0); ALKALINE PHOSPHATASE 63 IU/L (40-150); ANION GAP 15.1 mmol/L (8-16); BLOOD UREA NITROGEN < 5 mg/dL (7-26); CALCIUM 8.8 mg/dL (8.4-10.2); CARBON DIOXIDE 20 mmol/L (22-29); CHLORIDE 103 mmol/L (98-107); CREATININE, SERUM 0.69 mg/dL (0.57-1.11); EST GLOMERULAR FILTRATION RATE > 60 ML/MIN (60-); GLUCOSE 77 mg/dL (74-118); POTASSIUM 3.1 mmol/L (3.5-5.1); SODIUM 135 mmol/L (136-145)
[2019-11-20 06:44] LABS: BUN/CREATININE RATIO 7 (6-25)
--- NOTE | 2019-11-20 07:00 | NUR ---
RECEIVED BEDSIDE REPORT FROM OFF GOING NIGHT NURSE. PATIENT IN STABLE CONDITION, NO S/S OF DISTRESS NOTED. NO PAIN VOICED. TELEMETRY APPLIED. IV FLUIDS INFUSING, SITE ASYMPTOMATIC AND PATENT, TRANSPARENT DRESSING C/D/I. BED IN LOWEST POSITION AND LOCKED, SIDE RAILS X 2. CALL LIGHT WITHIN REACH.
[2019-11-20 07:03] LABS: MAGNESIUM 1.1 MG/DL (1.3-2.1)
[2019-11-20] MEDS ORDERED: MAGNESIUM SULFATE 2GM/50ML 50 ML IV ONE (07:30)
[2019-11-20 07:46] VITALS: BP 149/85
[2019-11-20 07:55] VITALS: BP 149/85
[2019-11-20] MEDS ORDERED: SODIUM CHLORIDE 0.9% 250ML 250 ML ONE (08:38)
[2019-11-20] MEDS: SUCRALFATE 1 GM TAB PO SCH ×2 (08:43→11:27)
[2019-11-20] MEDS: GABAPENTIN 100 MG CAP PO SCH (08:44)
[2019-11-20] MEDS: ACETAZOLAMIDE 250 MG TAB PO SCH (08:44)
[2019-11-20] MEDS: GUAIFENESIN 600 MG TAB PO SCH (08:44)
[2019-11-20] MEDS: SODIUM CHLORIDE 1 GM TAB PO SCH (08:44)
--- NOTE | 2019-11-20 08:48 | NUR ---
CONTACTED FACILITY, STILL PENDING APPROVAL
[2019-11-20] MEDS: IRON SUCROSE 100 MG in SODIUM CHLORIDE 0.9% 100 ML 100 ML IV SCH (09:52)
[2019-11-20 11:35] VITALS: BP 161/99
[2019-11-20] MEDS ORDERED: POTASSIUM CHLORIDE 20 MEQ TAB CR PO ONE (12:00)
[2019-11-20] MEDS: FLUCONAZOLE 100 MG TAB PO SCH (13:22)
--- NOTE | 2019-11-20 13:33 | NUR ---
INTERMEDIATE FACILITY DISCHARGE INFORMATION PATIENT HAS BEEN ACCEPTED TO: NAME: [facility] ADDRESS:[id number] [facility] ACCEPTING DISTANCE EDUCATION TEACHER: JESSICA BLACK MD:MATTI ROOM:[id number] NURSE CALL REPORT TO: [phone] IMM SIGNED AND OBTAINED (if applicable): IMM THE FOLLOWING DOCUMENTS MUST ACCOMPANY PATIENT FOR TRANSFER: COPIED CHART:PACKET
--- NOTE | 2019-11-20 13:38 | NUR ---
called report to [facility]. patient going to room 119. Report given to Fredrick campbell.
--- NOTE | 2019-11-20 13:49 | NUR ---
TRIED TO CONTACT THE PATIENT'S DAUGHTER TO NOTIFY HER OF THE PATIENT BEING TRANSFERRED TO [facility]. THE DAUGHTER DID NOT ANSWER WAS NOT ABLE TO LEAVE MASSAGE DUE TO THE VOICEMAIL BEING FULL.
--- NOTE | 2019-11-20 15:44 | NUR ---
PATIENT DISCHARGED TO [facility]. PATIENT OFF THE UNIT @ 1538 VIA STRETCHER ACCOMPANIED BY 2 EMS. PATIENT IN STABLE CONDITION, NO S/S OF DISTRESS NOTED. NO PAIN VOICED. IV ACCESS LEFT INTACT PER REQUEST OF NURSE AT [facility] FOR IV MEDICATION ADMINISTRATION. ALL PERSONAL ITEMS TAKEN WITH THE PATIENT. REPORT AND PAPERWORK GIVEN TO THE EMS.
[2019-11-20] MEDS ORDERED: METOCLOPRAMIDE HCL 10 MG TAB PO SCH (16:30)
[2019-11-20] MEDS ORDERED: PANTOPRAZOLE SOD 40 MG TABEC PO SCH (16:30)
--- NOTE | 2019-11-20 20:25 | Discharge Summary ---
ADMISSION DIAGNOSES: Gastric outlet syndrome, acute kidney injury, acute respiratory distress with hypoxia related to lung cancer, squamous cell cancer of the right upper lobe of lung, [id number] pain related to lung cancer, hypokalemia, metabolic alkalosis with nausea and vomiting. DISCHARGE DIAGNOSES: Gastric outlet syndrome, acute kidney injury, acute respiratory distress with hypoxia related to lung cancer, squamous cell cancer of the right upper lobe of lung, [id number] pain related to lung cancer, hypokalemia, metabolic alkalosis with nausea and vomiting, rule out Coronavirus, acute blood loss anemia secondary to gastrointestinal bleed, hyponatremia, Erika albicans of the esophagus, gastric outlet obstruction with ulcerated duodenum and esophagus. HISTORY: Squamous cell lung cancer, stage IV; hypertension. SURGICAL HISTORY: Tubal ligation, attempted tumor resection via thoracotomy. FAMILY HISTORY: The patient's mother had cancer. SOCIAL HISTORY: The patient admits to smoking 1/2 pack per day for 43 years. She quit when she was diagnosed with lung cancer. She states she did use crack in the past, but was never addicted. Per documentation, the patient is an alcoholic, drinking a 6-pack a day previously. HOSPITAL COURSE: A 59-year-old female reports to the ER for [id number] right shoulder pain with abdominal pain, and nausea and vomiting. Hospice has been discussed previously, but the patient refused. On admission, CT of the abdomen and pelvis showed focal soft tissue thickening of the 1st and 2nd portions of the duodenum and dilated fluid-filled stomach, finding suspicious for gastric outlet obstruction, circumferentially thickened mid to distal esophagus with mucosal hyperenhancement concerning for esophagitis. CT of the chest showed a 5 cm masslike opacity of the right apex, that truncate the segmental upper lobe bronchi. The patient was taken for an EGD, which showed ulcerated esophagus and duodenum. Biopsy of the esophagus showed Erika albicans. The patient was on a Protonix drip per GI recommendation and after the esophageal candidiasis she was started on fluconazole. Sodium level was 137 on admission and dropped as low as 128. Hemoglobin was 13 on admission and dropped to 8.6. The patient required 2 units of PRBCs while hospitalized after the Protonix drip with Reglan and Carafate. The patient is tolerating food and ready for discharge. When she fell at home, she is no longer safe to discharge home as physical therapy recommends alf facility. She will discharge to [facility] for prolonged PT and IV antibiotics for the esophageal candidiasis. She will follow up with Dr. Marshall outpatient and primary care in 1 to 2 weeks. The patient understands instructions and agrees to plan. Vital signs are stable. The patient is afebrile. Dictated by Aracelis Oscar NP MD ANITHA Stafford/MODMegan /[id number]
== END 2019-11-20 15:58 | DRG 380 ==
LOC: ER 01:45 → ERHOLD 04:38 → MED/SURG3 09:52
PROVIDERS: ADMIT Internal Medicine; ATTEND Internal Medicine
PROC: 0DD58ZX Extraction of Esophagus, Via Natural or Artificial Opening Endoscopic, Diagnostic (ICD-10-PCS; principal; 2019-11-10 13:43)
PROC: 30233N1 Transfusion of Nonautologous Red Blood Cells into Peripheral Vein, Percutaneous Approach (ICD-10-PCS; 2019-11-19)
DX: K31.1 Adult hypertrophic pyloric stenosis (principal); G93.41 Metabolic encephalopathy; N17.9 Acute kidney failure, unspecified; B37.81 Candidal esophagitis; E87.3 Alkalosis; C34.11 Malignant neoplasm of upper lobe, right bronchus or lung; K22.10 Ulcer of esophagus without bleeding; D62 Acute posthemorrhagic anemia; E87.1 Hypo-osmolality and hyponatremia; K26.9 Duodenal ulcer, unspecified as acute or chronic, without hemorrhage or perforation; K31.9 Disease of stomach and duodenum, unspecified; F17.210 Nicotine dependence, cigarettes, uncomplicated; R09.02 Hypoxemia; E87.6 Hypokalemia; E83.42 Hypomagnesemia; E83.39 Other disorders of phosphorus metabolism; Z11.59 Encounter for screening for other viral diseases; G89.3 Neoplasm related pain (acute) (chronic); Z80.9 Family history of malignant neoplasm, unspecified
CPT/HCPCS: 36415; 36600; 43235; 71260; 74177; 80048; 80053; 80061; 82550; 82553; 82607; 82728; 82746; 82805; 83036; 83540; 83735; 83880; 84100; 84132; 84443; 84466; 84484; 85025; 85045; 86850; 86900; 86920; 87106; 87205; 88104; 88112; 88305; 88312; 93005; 96361; 96365; 96366; 97139; 99284; J1450; J1756; J2001; J2250; J2270; J2405; J2765; J3475; J3480; J7030; J7040; J7050; P9016; Q9967; U0002